=== PATIENT | female | born 1995 | race African-American/Black ===

== ENCOUNTER 2022-11-06 05:02 | Emergency (ER) | payer BC ==
--- OUTSIDE RECORDS SUMMARY | 2022-11-06 05:10 | XMS REPORT | Continuity of Care Document ---
:1995 Author Organization [facility] t Address [address] [facility]. [address] [place] [address] Care Team Providers Name Role Phone Jolynn Amezquita MD Primary Care Physician KAHLIL GOMEZ Attending Clinician Unavailable JOLYNN AMEZQUITA Attending Clinician Unavailable Jesus Jung MD Attending Clinician Milagros Kirby MA Attending Clinician Unavailable Doctor Unassigned, [place] Attending Clinician Unavailable Yeny Call MD Attending Clinician [facility] Attending Clinician Unavailable LEE IYER Attending Clinician Unavailable LEE IYER Attending Clinician Unavailable RICK MCDONOUGH Attending Clinician Unavailable Mohan Anna Attending Clinician Unknown, Attending Attending Clinician Unavailable MOHAN AMEZQUITA Attending Clinician Unavailable Bernice Lehman MA L Attending Clinician Unavailable Rick Mcdonough PA-C Attending Clinician Kahlil Gomez MD Attending Clinician Linsey Pinzon RN Attending Clinician Amanda Peterson Attending Clinician Satish oPwell MD Attending Clinician BRYAN ANGUIANO Attending Clinician Unavailable Only, [facility] Attending Clinician Unavailable UNKNOWN, ATTENDING Attending Clinician Unavailable JAROCHO ANDERSON Attending Clinician Unavailable JESUS JOHNSON Attending Clinician Unavailable Bello RN, Michela Weaver Attending Clinician Unavailable Halley Campos MA Attending Clinician Unavailable Only, Cori Vtc Test Attending Clinician Unavailable Gaurav HE, Tomas Gonzáles Attending Clinician TOMAS MCGHEE Attending Clinician Unavailable Celeste Rodriguez Attending Clinician CELESTE ORTEGA Attending Clinician Unavailable Ethan Jerry MD Attending Clinician Sy Wiseman MD Attending Clinician SY WISEMAN Attending Clinician Unavailable Dilcia Isaacs MD Attending Clinician Karla Herring Attending Clinician [phone] KARLA CARSON Attending Clinician Unavailable DILCIA ISAACS Attending Clinician Unavailable Pob, [facility] Attending Clinician Unavailable Jarocho Anderson DO Attending Clinician KAHLIL GOMEZ Admitting Clinician Unavailable Kahlil Gmoez MD Admitting Clinician Payers Payer Name Policy Type Policy Number Effective Date Expiration Date S branden [facility] [id number] 2021 EMPLOYEE PLAN 00:00:00 Problems Condition Condition Condition Status Onset Resolution Last Treating Co mments Source Name Details Category Date Date Treatment Clinician Date Vaginal Vaginal Disease Active Univers discharge discharge 2-26 ity of 00:00: [place] 00 Medical Branch Iron Iron Disease Recurre Univers deficiency deficiency nce 2-25 it y of anemia due [place] chronic to chronic 00 Me dical blood loss blood loss Br anch Chronic Chronic Disease Recurre Univer s migraine migraine nce 2-25 ity of without without 00:00: [place] aura with aura with 00 Medi vy status status Branch migrainosu migrainosu s, not s, not intractabl intractabl e e Constipati Constipati Disease Active U nivers on, on, 12-21 ity of unspecifie unspecifie [place] 00 Medical constipati constipati Br anch on type on type Hypokalemi Hypokalemi Disease Active U nivers a a 7-13 ity of 00:00: [place] 00 Medical Branch Anemia Anemia Disease Active Univers associated associated 7-13 it y of with acute with acute [place] blood loss blood loss 00 Me dical Branch Retained Retained Disease Active Unive rs products products 7-11 ity of of of 00:00: [place] conception conception 00 Me dical after after Branch miscarriag miscarriag e e Class 1 Class 1 Disease Active Univers obesity obesity 5-10 ity of due to due to 00:00: [place] excess excess 00 Medical calories calories Branch without without serious serious comorbidit comorbidit y with y with body mass body mass index index (BMI) of (BMI) of 33.0 to 33.0 to 33.9 in 33.9 in adult adult 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 [place] II[place] 00 Medica l Branch Pap smear Pap smear Disease Active Uni vers of cervix of cervix 9-15 ity of with with 00:00: [place] ASCUS, ASCUS, 00 Medical cannot cannot Branch exclude exclude HGSIL HGSIL BMI BMI Disease Active 2018-06 Univers 31.0-31.9, 31.0-31.9, 2-09 it y of adult adult 00:00: [place] 00 Medical Branch Umbilical Umbilical Disease Active Uni vers hernia hernia 9-20 ity of without without 00:00: [place] obstructio obstructio 00 Me dical n and n and Branch without without gangrene gangrene Allergies, Adverse Reactions, Alerts Allergy Allergy Status Severity Reaction(s) Onset Inactive Treating Comm ents Source Name Type Date Date Clinician NO KNOWN Drug Active Univers ALLERGIE Class ity of [place] [facility] [place] Social History Social Habit Start Date Stop Date Quantity Comments Source History SDMO University o f Alcohol Frequency [place] M edical [facility] History [facility] University o f Alcohol Std [place] [facility] Drinks Branch History SDMO University o f Alcohol Binge [place] [facility] Alcohol intake 2022-07-31 2022-07-31 Ex-drinker University 00:00:00 00:00:00 (finding) [facility] Exposure to 2022-07-19 2022-07-29 Not sure [facility] SARS-CoV-2 00:00:00 11:23:[address] [facility] (event) [place] Tobacco use and 2021-12-21 2021-12-21 Smokeless tobacco Un iversity of exposure 00:00:00 00:00:00 non-user [facility] Alcohol Comment 2019-05-20 2019-05-20 social drinker Unive rsity of 00:00:00 00:00:00 [facility] Sex [birth year] Universit y of 00:00:00 00:00:00 [facility] Smoking Status Start Date Stop Date Source Never smoked tobacco [facility] Medications Ordered Filled Start Stop Current Ordering Indication Dosage Frequency Signature Comments Components Source Medication Medication Date Date Medication? Clinician (SIG) Name Name tretinoin Yes [id number] Apply to Univers 0.025 % 02 affected ity of cream 00:00: area(s) at [place] 00 bedtime. Medical Branch SUMAtriptan Yes [id number] When you Univers 50 mg 5-31 have a ity of tablet 00:00: severe [place] 00 headache Medical you can Branch take 50 mg. If symptoms persist or return, may repeat dose after 2 hours. No more than 2 tablets in a day SUMAtriptan Yes [id number] When you Univers 50 mg 5-31 have a ity of tablet 00:00: severe [place] 00 headache Medical you can Branch take 50 mg. If symptoms persist or return, may repeat dose after 2 hours. No more than 2 tablets in a day SUMAtriptan Yes [id number] When you Univers 50 mg 5-31 have a ity of tablet 00:00: severe [place] 00 headache Medical you can Branch take 50 mg. If symptoms persist or return, may repeat dose after 2 hours. No more than 2 tablets in a day valACYclovi Yes [id number] 2g Take 2 U nivers r (VALTREX) 4-21 tablets by it y of 1 gram 00:00: mouth in [place] tablet 00 the Medical morning Branch and 2 tablets in the evening. Take 2 doses total at the first sign of outbreak. valACYclovi Yes [id number] 2g Take 2 U nivers r (VALTREX) 4-21 tablets by it y of 1 gram 00:00: mouth in [place] tablet 00 the Medical morning Branch and 2 tablets in the evening. Take 2 doses total at the first sign of outbreak. valACYclovi Yes [id number] 2g Take 2 U nivers r (VALTREX) 4-21 tablets by it y of 1 gram 00:00: mouth in [place] tablet 00 the Medical morning Branch and 2 tablets in the evening. Take 2 doses total at the first sign of outbreak. valACYclovi Yes [id number] 2g Take 2 U nivers r (VALTREX) 4-21 tablets by it y of 1 gram 00:00: mouth in [place] tablet 00 the Medical morning Branch and 2 tablets in the evening. Take 2 doses total at the first sign of outbreak. ferrous Yes [id number] 324mg Take 1 Un dorinda gluconate 2-24 tablet by ity o f 324 mg 00:00: mouth [place] (37.5 mg 00 every Medical iron) Monday, Branch tablet Monday and Monday. ferrous Yes [id number] 324mg Take 1 Un dorinda gluconate 2-24 tablet by ity o f 324 mg 00:00: mouth [place] (37.5 mg 00 every Medical iron) Monday, Branch tablet Monday and Monday. ferrous Yes [id number] 324mg Take 1 Un dorinda gluconate 2-24 tablet by ity o f 324 mg 00:00: mouth [place] (37.5 mg 00 every Medical iron) Monday, Branch tablet Monday and Monday. ferrous Yes [id number] 324mg Take 1 Un dorinda gluconate 2-24 tablet by ity o f 324 mg 00:00: mouth [place] (37.5 mg 00 every Medical iron) Monday, Branch tablet Monday and Monday. ferrous 0 Yes [id number] 324mg Take 1 Un dorinda gluconate 2-24 tablet by ity o f 324 mg 00:00: mouth [place] (37.5 mg 00 every Medical iron) Monday, Branch tablet Monday and Monday. ferrous Yes [id number] 324mg Take 1 Un dorinda gluconate 2-24 tablet by ity o f 324 mg 00:00: mouth [place] (37.5 mg 00 every Medical iron) Monday, Branch tablet Monday and Monday. ferrous Yes [id number] 324mg Take 1 Un dorinda gluconate 2-24 tablet by ity o f 324 mg 00:00: mouth [place] (37.5 mg 00 every Medical iron) Monday, Branch tablet Monday and Monday. SUMAtriptan 2021-06 Yes [id number] When you Univers 50 mg 0-24 have a ity of tablet 00:00: severe [place] 00 headache Medical you can Branch take 50 mg. If symptoms persist or return, may repeat dose after 2 hours. No more than 2 tablets in a day naproxen 2021-06 Yes [id number] 500mg Take 1 U nivers 500 mg 0-24 tablet by ity of tablet 00:00: mouth 2 [place] 00 (two) Medical times Branch daily with meals as needed for Pain (scale 4-6). acetaminoph 2021-06 Yes [id number] 500mg Take 1 Univers en (TYLENOL 0-24 tablet by ity of EXTRA 00:00: mouth [place] STRENGTH) 00 every 6 Medical 500 mg (six) Branch tablet hours as needed for Pain. aspirin-inocente 2021-06 Yes [id number] 1{tbl} Take 1 Univers taminophen- 0-24 tablet by ity of caffeine 00:00: mouth [place] every 12 Medic al mg per (twelve) Branch tablet hours as needed for Pain. butalbital- 2021-06 Yes [id number] 1{tbl} Take 1 Univers acetaminoph 0-24 tablet by ity of en-caff 00:00: mouth [place] (ESGIC) 00 every 12 Medical 50-325-40 (twelve) Branch mg tablet hours as needed for Pain (scale 7-10). metoclopram 2021-06 Yes [id number] 5mg Take 0.5 Univers dian HCl 0-24 tablets by ity of (REGLAN) 10 00:00: mouth [place] mg tablet 00 every 12 Medica l (twelve) Branch hours as needed for Nausea and Vomiting (N/V). SUMAtriptan 2021-06 Yes [id number] When you Univers 50 mg 0-24 have a ity of tablet 00:00: severe [place] 00 headache Medical you can Branch take 50 mg. If symptoms persist or return, may repeat dose after 2 hours. No more than 2 tablets in a day naproxen 2021-06 Yes [id number] 500mg Take 1 U nivers 500 mg 0-24 tablet by ity of tablet 00:00: mouth 2 [place] 00 (two) Medical times Branch daily with meals as needed for Pain (scale 4-6). acetaminoph 2021-06 Yes 500mg Take 1 Univers en (TYLENOL 0-24 tablet by ity of EXTRA 00:00: mouth [place] STRENGTH) 00 every 6 Medical 500 mg (six) Branch tablet hours as needed for Pain. aspirin-inocente 2021-06 Yes [id number] 1{tbl} Take 1 Univers taminophen- 0-24 tablet by ity of caffeine 00:00: mouth [place] every 12 Medic al mg per (twelve) Branch tablet hours as needed for Pain. butalbital- 2021-06 Yes [id number] 1{tbl} Take 1 Univers acetaminoph 0-24 tablet by ity of en-caff 00:00: mouth [place] (ESGIC) 00 every 12 Medical 50-325-40 (twelve) Branch mg tablet hours as needed for Pain (scale 7-10). metoclopram 2021-06 Yes [id number] 5mg Take 0.5 Univers dian HCl 0-24 tablets by ity of (REGLAN) 10 00:00: mouth [place] mg tablet 00 every 12 Medica l (twelve) Branch hours as needed for Nausea and Vomiting (N/V). SUMAtriptan 2021-06 Yes [id number] When you Univers 50 mg 0-24 have a ity of tablet 00:00: severe [place] 00 headache Medical you can Branch take 50 mg. If symptoms persist or return, may repeat dose after 2 hours. No more than 2 tablets in a day naproxen 2021-06 Yes [id number] 500mg Take 1 U nivers 500 mg 0-24 tablet by ity of tablet 00:00: mouth 2 [place] 00 (two) Medical times Branch daily with meals as needed for Pain (scale 4-6). acetaminoph 2021-06 Yes [id number] 500mg Take 1 Univers en (TYLENOL 0-24 tablet by ity of EXTRA 00:00: mouth [place] STRENGTH) 00 every 6 Medical 500 mg (six) Branch tablet hours as needed for Pain. aspirin-inocente 2021-06 Yes [id number] 1{tbl} Take 1 Univers taminophen- 0-24 tablet by ity of caffeine 00:00: mouth [place] every 12 Medic al mg per (twelve) Branch tablet hours as needed for Pain. butalbital- 2021-06 Yes [id number] 1{tbl} Take 1 Univers acetaminoph 0-24 tablet by ity of en-caff 00:00: mouth [place] (ESGIC) 00 every 12 Medical 50-325-40 (twelve) Branch mg tablet hours as needed for Pain (scale 7-10). metoclopram 2021-06 Yes [id number] 5mg Take 0.5 Univers dian HCl 0-24 tablets by ity of (REGLAN) 10 00:00: mouth [place] mg tablet 00 every 12 Medica l (twelve) Branch hours as needed for Nausea and Vomiting (N/V). SUMAtriptan 2021-06 Yes [id number] When you Univers 50 mg 0-24 have a ity of tablet 00:00: severe [place] 00 headache Medical you can Branch take 50 mg. If symptoms persist or return, may repeat dose after 2 hours. No more than 2 tablets in a day naproxen 2021-06 Yes [id number] 500mg Take 1 U nivers 500 mg 0-24 tablet by ity of tablet 00:00: mouth 2 [place] 00 (two) Medical times Branch daily with meals as needed for Pain (scale 4-6). acetaminoph 2021-06 Yes [id number] 500mg Take 1 Univers en (TYLENOL 0-24 tablet by ity of EXTRA 00:00: mouth [place] STRENGTH) 00 every 6 Medical 500 mg (six) Branch tablet hours as needed for Pain. aspirin-inocente 2021-06 Yes [id number] 1{tbl} Take 1 Univers taminophen- 0-24 tablet by ity of caffeine 00:00: mouth [place] every 12 Medic al mg per (twelve) Branch tablet hours as needed for Pain. butalbital- 2021-06 Yes [id number] 1{tbl} Take 1 Univers acetaminoph 0-24 tablet by ity of en-caff 00:00: mouth [place] (ESGIC) 00 every 12 Medical 50-325-40 (twelve) Branch mg tablet hours as needed for Pain (scale 7-10). metoclopram 2021-06 Yes [id number] 5mg Take 0.5 Univers dian HCl 0-24 tablets by ity of (REGLAN) 10 00:00: mouth [place] mg tablet 00 every 12 Medica l (twelve) Branch hours as needed for Nausea and Vomiting (N/V). SUMAtriptan 2021-06 Yes [id number] When you Univers 50 mg 0-24 have a ity of tablet 00:00: severe [place] 00 headache Medical you can Branch take 50 mg. If symptoms persist or return, may repeat dose after 2 hours. No more than 2 tablets in a day naproxen 2021-06 Yes [id number] 500mg Take 1 U nivers 500 mg 0-24 tablet by ity of tablet 00:00: mouth 2 [place] 00 (two) Medical times Branch daily with meals as needed for Pain (scale 4-6). acetaminoph 2021-06 Yes [id number] 500mg Take 1 Univers en (TYLENOL 0-24 tablet by ity of EXTRA 00:00: mouth [place] STRENGTH) 00 every 6 Medical 500 mg (six) Branch tablet hours as needed for Pain. aspirin-inocente 2021-06 Yes [id number] 1{tbl} Take 1 Univers taminophen- 0-24 tablet by ity of caffeine 00:00: mouth [place] every 12 Medic al mg per (twelve) Branch tablet hours as needed for Pain. butalbital- 2021-06 Yes [id number] 1{tbl} Take 1 Univers acetaminoph 0-24 tablet by ity of en-caff 00:00: mouth [place] (ESGIC) 00 every 12 Medical 50-325-40 (twelve) Branch mg tablet hours as needed for Pain (scale 7-10). metoclopram 2021-06 Yes [id number] 5mg Take 0.5 Univers dian HCl 0-24 tablets by ity of (REGLAN) 10 00:00: mouth [place] mg tablet 00 every 12 Medica l (twelve) Branch hours as needed for Nausea and Vomiting (N/V). SUMAtriptan 2021-06 Yes [id number] When you Univers 50 mg 0-24 have a ity of tablet 00:00: severe [place] 00 headache Medical you can Branch take 50 mg. If symptoms persist or return, may repeat dose after 2 hours. No more than 2 tablets in a day naproxen 2021-06 Yes [id number] 500mg Take 1 U nivers 500 mg 0-24 tablet by ity of tablet 00:00: mouth 2 [place] 00 (two) Medical times Branch daily with meals as needed for Pain (scale 4-6). acetaminoph 2021-06 Yes [id number] 500mg Take 1 Univers en (TYLENOL 0-24 tablet by ity of EXTRA 00:00: mouth [place] STRENGTH) 00 every 6 Medical 500 mg (six) Branch tablet hours as needed for Pain. aspirin-inocente 2021-06 Yes [id number] 1{tbl} Take 1 Univers taminophen- 0-24 tablet by ity of caffeine 00:00: mouth [place] every 12 Medic al mg per (twelve) Branch tablet hours as needed for Pain. butalbital- 2021-06 Yes [id number] 1{tbl} Take 1 Univers acetaminoph 0-24 tablet by ity of en-caff 00:00: mouth [place] (ESGIC) 00 every 12 Medical 50-325-40 (twelve) Branch mg tablet hours as needed for Pain (scale 7-10). metoclopram 2021-06 Yes [id number] 5mg Take 0.5 Univers dian HCl 0-24 tablets by ity of (REGLAN) 10 00:00: mouth [place] mg tablet 00 every 12 Medica l (twelve) Branch hours as needed for Nausea and Vomiting (N/V). SUMAtriptan 2021-06 Yes [id number] When you Univers 50 mg 0-24 have a ity of tablet 00:00: severe [place] 00 headache Medical you can Branch take 50 mg. If symptoms persist or return, may repeat dose after 2 hours. No more than 2 tablets in a day naproxen 2021-06 Yes [id number] 500mg Take 1 U nivers 500 mg 0-24 tablet by ity of tablet 00:00: mouth 2 [place] 00 (two) Medical times Branch daily with meals as needed for Pain (scale 4-6). acetaminoph 2021-06 Yes [id number] 500mg Take 1 Univers en (TYLENOL 0-24 tablet by ity of EXTRA 00:00: mouth [place] STRENGTH) 00 every 6 Medical 500 mg (six) Branch tablet hours as needed for Pain. aspirin-inocente 2021-06 Yes [id number] 1{tbl} Take 1 Univers taminophen- 0-24 tablet by ity of caffeine 00:00: mouth [place] every 12 Medic al mg per (twelve) Branch tablet hours as needed for Pain. butalbital- 2021-06 Yes [id number] 1{tbl} Take 1 Univers acetaminoph 0-24 tablet by ity of en-caff 00:00: mouth [place] (ESGIC) 00 every 12 Medical 50-325-40 (twelve) Branch mg tablet hours as needed for Pain (scale 7-10). metoclopram 2021-06 Yes [id number] 5mg Take 0.5 Univers dian HCl 0-24 tablets by ity of (REGLAN) 10 00:00: mouth [place] mg tablet 00 every 12 Medica l (twelve) Branch hours as needed for Nausea and Vomiting (N/V). SUMAtriptan 2021-06 Yes [id number] When you Univers 50 mg 0-24 have a ity of tablet 00:00: severe [place] 00 headache Medical you can Branch take 50 mg. If symptoms persist or return, may repeat dose after 2 hours. No more than 2 tablets in a day naproxen 2021-06 Yes [id number] 500mg Take 1 U nivers 500 mg 0-24 tablet by ity of tablet 00:00: mouth 2 [place] 00 (two) Medical times Branch daily with meals as needed for Pain (scale 4-6). acetaminoph 2021-06 Yes [id number] 500mg Take 1 Univers en (TYLENOL 0-24 tablet by ity of EXTRA 00:00: mouth [place] STRENGTH) 00 every 6 Medical 500 mg (six) Branch tablet hours as needed for Pain. aspirin-inocente 2021-06 Yes [id number] 1{tbl} Take 1 Univers taminophen- 0-24 tablet by ity of caffeine 00:00: mouth [place] every 12 Medic al mg per (twelve) Branch tablet hours as needed for Pain. butalbital- 2021-06 Yes [id number] 1{tbl} Take 1 Univers acetaminoph 0-24 tablet by ity of en-caff 00:00: mouth [place] (ESGIC) 00 every 12 Medical 50-325-40 (twelve) Branch mg tablet hours as needed for Pain (scale 7-10). metoclopram 2021-06 Yes [id number] 5mg Take 0.5 Univers dian HCl 0-24 tablets by ity of (REGLAN) 10 00:00: mouth [place] mg tablet 00 every 12 Medica l (twelve) Branch hours as needed for Nausea and Vomiting (N/V). SUMAtriptan 2021-06 Yes [id number] When you Univers 50 mg 0-24 have a ity of tablet 00:00: severe [place] 00 headache Medical you can Branch take 50 mg. If symptoms persist or return, may repeat dose after 2 hours. No more than 2 tablets in a day naproxen 2021-06 Yes [id number] 500mg Take 1 U nivers 500 mg 0-24 tablet by ity of tablet 00:00: mouth 2 [place] 00 (two) Medical times Branch daily with meals as needed for Pain (scale 4-6). acetaminoph 2021-06 Yes [id number] 500mg Take 1 Univers en (TYLENOL 0-24 tablet by ity of EXTRA 00:00: mouth [place] STRENGTH) 00 every 6 Medical 500 mg (six) Branch tablet hours as needed for Pain. aspirin-inocente 2021-06 Yes [id number] 1{tbl} Take 1 Univers taminophen- 0-24 tablet by ity of caffeine 00:00: mouth [place] every 12 Medic al mg per (twelve) Branch tablet hours as needed for Pain. butalbital- 2021-06 Yes [id number] 1{tbl} Take 1 Univers acetaminoph 0-24 tablet by ity of en-caff 00:00: mouth [place] (ESGIC) 00 every 12 Medical 50-325-40 (twelve) Branch mg tablet hours as needed for Pain (scale 7-10). metoclopram 2021-06 Yes [id number] 5mg Take 0.5 Univers dian HCl 0-24 tablets by ity of (REGLAN) 10 00:00: mouth [place] mg tablet 00 every 12 Medica l (twelve) Branch hours as needed for Nausea and Vomiting (N/V). SUMAtriptan 2021-06 Yes [id number] When you Univers 50 mg 0-24 have a ity of tablet 00:00: severe [place] 00 headache Medical you can Branch take 50 mg. If symptoms persist or return, may repeat dose after 2 hours. No more than 2 tablets in a day naproxen 2021-06 Yes [id number] 500mg Take 1 U nivers 500 mg 0-24 tablet by ity of tablet 00:00: mouth 2 [place] 00 (two) Medical times Branch daily with meals as needed for Pain (scale 4-6). acetaminoph 2021-06 Yes [id number] 500mg Take 1 Univers en (TYLENOL 0-24 tablet by ity of EXTRA 00:00: mouth [place] STRENGTH) 00 every 6 Medical 500 mg (six) Branch tablet hours as needed for Pain. aspirin-inocente 2021-06 Yes [id number] 1{tbl} Take 1 Univers taminophen- 0-24 tablet by ity of caffeine 00:00: mouth [place] every 12 Medic al mg per (twelve) Branch tablet hours as needed for Pain. butalbital- 2021-06 Yes [id number] 1{tbl} Take 1 Univers acetaminoph 0-24 tablet by ity of en-caff 00:00: mouth [place] (ESGIC) 00 every 12 Medical 50-325-40 (twelve) Branch mg tablet hours as needed for Pain (scale 7-10). metoclopram 2021-06 Yes [id number] 5mg Take 0.5 Univers dian HCl 0-24 tablets by ity of (REGLAN) 10 00:00: mouth [place] mg tablet 00 every 12 Medica l (twelve) Branch hours as needed for Nausea and Vomiting (N/V). SUMAtriptan 2021-06 Yes [id number] When you Univers 50 mg 0-24 have a ity of tablet 00:00: severe 00 headache Medical you can Branch take 50 mg. If symptoms persist or return, may repeat dose after 2 hours. No more than 2 tablets in a day naproxen 2021-06 Yes [id number] 500mg Take 1 U nivers 500 mg 0-24 tablet by ity of tablet 00:00: mouth 2 [place] 00 (two) Medical times Branch daily with meals as needed for Pain (scale 4-6). acetaminoph 2021-06 Yes [id number] 500mg Take 1 Univers en (TYLENOL 0-24 tablet by ity of EXTRA 00:00: mouth [place] STRENGTH) 00 every 6 Medical 500 mg (six) Branch tablet hours as needed for Pain. aspirin-inocente 2021-06 Yes [id number] 1{tbl} Take 1 Univers taminophen- 0-24 tablet by ity of caffeine 00:00: mouth [place] every 12 Medic al mg per (twelve) Branch tablet hours as needed for Pain. butalbital- 2021-06 Yes [id number] 1{tbl} Take 1 Univers acetaminoph 0-24 tablet by ity of en-caff 00:00: mouth [place] (ESGIC) 00 every 12 Medical 50-325-40 (twelve) Branch mg tablet hours as needed for Pain (scale 7-10). metoclopram 2021-06 Yes [id number] 5mg Take 0.5 Univers dian HCl 0-24 tablets by ity of (REGLAN) 10 00:00: mouth [place] mg tablet 00 every 12 Medica l (twelve) Branch hours as needed for Nausea and Vomiting (N/V). SUMAtriptan 2021-06 Yes [id number] When you Univers 50 mg 0-24 have a ity of tablet 00:00: severe [place] 00 headache Medical you can Branch take 50 mg. If symptoms persist or return, may repeat dose after 2 hours. No more than 2 tablets in a day naproxen 2021-06 Yes [id number] 500mg Take 1 U nivers 500 mg 0-24 tablet by ity of tablet 00:00: mouth 2 [place] 00 (two) Medical times Branch daily with meals as needed for Pain (scale 4-6). acetaminoph 2021-06 Yes [id number] 500mg Take 1 Univers en (TYLENOL 0-24 tablet by ity of EXTRA 00:00: mouth [place] STRENGTH) 00 every 6 Medical 500 mg (six) Branch tablet hours as needed for Pain. aspirin-inocente 2021-06 Yes [id number] 1{tbl} Take 1 Univers taminophen- 0-24 tablet by ity of caffeine 00:00: mouth [place] every 12 Medic al mg per (twelve) Branch tablet hours as needed for Pain. butalbital- 2021-06 Yes [id number] 1{tbl} Take 1 Univers acetaminoph 0-24 tablet by ity of en-caff 00:00: mouth [place] (ESGIC) 00 every 12 Medical 50-325-40 (twelve) Branch mg tablet hours as needed for Pain (scale 7-10). metoclopram 2021-06 Yes [id number] 5mg Take 0.5 Univers dian HCl 0-24 tablets by ity of (REGLAN) 10 00:00: mouth [place] mg tablet 00 every 12 Medica l (twelve) Branch hours as needed for Nausea and Vomiting (N/V). SUMAtriptan 2021-06 Yes [id number] When you [facility] 50 mg 0-24 have a ity of tablet 00:00: severe [place] 00 headache Medical you can Branch take 50 mg. If symptoms persist or return, may repeat dose after 2 hours. No more than 2 tablets in a day naproxen 2021-06 Yes [id number] 500mg Take 1 U nivers 500 mg 0-24 tablet by ity of tablet 00:00: mouth 2 [place] 00 (two) Medical times Branch daily with meals as needed for Pain (scale 4-6). acetaminoph 2021-06 Yes [id number] 500mg Take 1 [facility] en (TYLENOL 0-24 tablet by ity of EXTRA 00:00: mouth [place] STRENGTH) 00 every 6 Medical 500 mg (six) Branch tablet hours as needed for Pain. aspirin-inocente 2021-06 Yes [id number] 1{tbl} Take 1 [facility] taminophen- 0-24 tablet by ity of caffeine 00:00: mouth [place] every 12 Medic al mg per (twelve) Branch tablet hours as needed for Pain. butalbital- 2021-06 Yes [id number] 1{tbl} Take 1 [facility] acetaminoph 0-24 tablet by ity of en-caff 00:00: mouth [place] (ESGIC) 00 every 12 Medical 50-325-40 (twelve) Branch mg tablet hours as needed for Pain (scale 7-10). metoclopram 2021-06 Yes [id number] 5mg Take 0.5 [facility] dian HCl 0-24 tablets by ity of (REGLAN) 10 00:00: mouth [place] mg tablet 00 every 12 Medica l (twelve) Branch hours as needed for Nausea and Vomiting (N/V). naproxen 2021-06 Yes [id number] 500mg Take 1 U nivers 500 mg 0-24 tablet by ity of tablet 00:00: mouth 2 [place] 00 (two) Medical times Branch daily with meals as needed for Pain (scale 4-6). acetaminoph 2021-06 Yes [id number] 500mg Take 1 [facility] en (TYLENOL 0-24 tablet by ity of EXTRA 00:00: mouth [place] STRENGTH) 00 every 6 Medical 500 mg (six) Branch tablet hours as needed for Pain. aspirin-inocente 2021-06 Yes [id number] 1{tbl} Take 1 [facility] taminophen- 0-24 tablet by ity of caffeine 00:00: mouth [place] every 12 Medic al mg per (twelve) Branch tablet hours as needed for Pain. butalbital- 2021-06 Yes [id number] 1{tbl} Take 1 [facility] acetaminoph 0-24 tablet by ity of en-caff 00:00: mouth [place] (ESGIC) 00 every 12 Medical 50-325-40 (twelve) Branch mg tablet hours as needed for Pain (scale 7-10). metoclopram 2021-06 Yes [id number] 5mg Take 0.5 [facility] dian HCl 0-24 tablets by ity of (REGLAN) 10 00:00: mouth [place] mg tablet 00 every 12 Medica l (twelve) Branch hours as needed for Nausea and Vomiting (N/V). naproxen 2021-06 Yes [id number] 500mg Take 1 U nivers 500 mg 0-24 tablet by ity of tablet 00:00: mouth 2 [place] 00 (two) Medical times Branch daily with meals as needed for Pain (scale 4-6). acetaminoph 2021-06 Yes [id number] 500mg Take 1 [facility] en (TYLENOL 0-24 tablet by ity of EXTRA 00:00: mouth [place] STRENGTH) 00 every 6 Medical 500 mg (six) Branch tablet hours as needed for Pain. aspirin-inocente 2021-06 Yes [id number] 1{tbl} Take 1 [facility] taminophen- 0-24 tablet by ity of caffeine 00:00: mouth [place] every 12 Medic al mg per (twelve) Branch tablet hours as needed for Pain. butalbital- 2021-06 Yes [id number] 1{tbl} Take 1 [facility] acetaminoph 0-24 tablet by ity of en-caff 00:00: mouth [place] (ESGIC) 00 every 12 Medical 50-325-40 (twelve) Branch mg tablet hours as needed for Pain (scale 7-10). metoclopram 2021-06 Yes [id number] 5mg Take 0.5 [facility] dian HCl 0-24 tablets by ity of (REGLAN) 10 00:00: mouth [place] mg tablet 00 every 12 Medica l (twelve) Branch hours as needed for Nausea and Vomiting (N/V). naproxen 2021-06 Yes [id number] 500mg Take 1 U nivers 500 mg 0-24 tablet by ity of tablet 00:00: mouth 2 [place] 00 (two) Medical times Branch daily with meals as needed for Pain (scale 4-6). acetaminoph 2021-06 Yes [id number] 500mg Take 1 [facility] en (TYLENOL 0-24 tablet by ity of EXTRA 00:00: mouth [place] STRENGTH) 00 every 6 Medical 500 mg (six) Branch tablet hours as needed for Pain. aspirin-inocente 2021-06 Yes [id number] 1{tbl} Take 1 [facility] taminophen- 0-24 tablet by ity of caffeine 00:00: mouth [place] every 12 Medic al mg per (twelve) Branch tablet hours as needed for Pain. butalbital- 2021-06 Yes [id number] 1{tbl} Take 1 [facility] acetaminoph 0-24 tablet by ity of en-caff 00:00: mouth [place] (ESGIC) 00 every 12 Medical 50-325-40 (twelve) Branch mg tablet hours as needed for Pain (scale 7-10). metoclopram 2021-06 Yes [id number] 5mg Take 0.5 [facility] dian HCl 0-24 tablets by ity of (REGLAN) 10 00:00: mouth [place] mg tablet 00 every 12 Medica l (twelve) Branch hours as needed for Nausea and Vomiting (N/V). SUMAtriptan 2021-06- No [id number] When you [facility] 50 mg 0-24 05-31 have a ity of tablet 00:00: 00:00 severe [place] 00 :00 headache Medical you can Branch take 50 mg. If symptoms persist or return, may repeat dose after 2 hours. No more than 2 tablets in a day No known No No known Unive rs medications 7-28 medication it y of 08:11: s [place] 02 Medical Branch semaglutide Yes [id number] 2.4mg inject 2.4 [facility] , weight 7-28 mg under ity of loss, 2.4 00:00: the [place] mg/0.75 mL 00 weekly. Medica l [facility] Branch injection semaglutide 2021-0 Yes [id number] 2.4mg inject 2.4 [facility] , weight 7-28 mg under ity of loss, 2.4 00:00: the [place] mg/0.75 mL 00 weekly. Medica l P[facility] Branch injection semaglutide 2021-0 Yes [id number] 2.4mg inject 2.4 [facility] , weight 7-28 mg under ity of loss, 2.4 00:00: the [place] mg/0.75 mL 00 weekly. [facility]ica l [facility] Branch injection semaglutide 2021-0 Yes [id number] 2.4mg inject 2.4 [facility] , weight 7-28 mg under ity of loss, 2.4 00:00: the [place] mg/0.75 mL 00 weekly. [facility]ica l [facility] Branch injection semaglutide 2021-0 Yes [id number] 2.4mg inject 2.4 [facility] , weight 7-28 mg under ity of loss, 2.4 00:00: the [place] mg/0.75 mL 00 weekly. Medica l [facility] Branch injection semaglutide 2021-0 Yes [id number] 2.4mg inject 2.4 [facility] , weight 7-28 mg under ity of loss, 2.4 00:00: the [place] mg/0.75 mL 00 weekly. Medica l [facility] Branch injection semaglutide 2021-0 Yes [id number] 2.4mg inject 2.4 [facility] , weight 7-28 mg under ity of loss, 2.4 00:00: the [place] mg/0.75 mL 00 weekly. Medica l [facility] Branch injection semaglutide 2-0 Yes [id number] 2.4mg inject 2.4 [facility] , weight 7-28 mg under ity of loss, 2.4 00:00: the [place] mg/0.75 mL 00 weekly. Medica l [facility] Branch injection semaglutide 2021-0 Yes [id number] 2.4mg inject 2.4 [facility] , weight 7-28 mg under ity of loss, 2.4 00:00: the [place] mg/0.75 mL 00 weekly. Medica l [facility] Branch injection semaglutide 2021-0 Yes [id number] 2.4mg inject 2.4 [facility] , weight 7-28 mg under ity of loss, 2.4 00:00: the [place] mg/0.75 mL 00 weekly. Medica l [facility] Branch injection semaglutide 2021-0 Yes [id number] 2.4mg inject 2.4 [facility] , weight 7-28 mg under ity of loss, 2.4 00:00: the [place] mg/0.75 mL 00 weekly. Medica l [facility] Branch injection semaglutide 2021-0 Yes [id number] 2.4mg inject 2.4 [facility] , weight 7-28 mg under ity of loss, 2.4 00:00: the [place] mg/0.75 mL 00 weekly. Medica l [facility] Branch injection semaglutide 2021-0 Yes [id number] 2.4mg inject 2.4 [facility] , weight 7-28 mg under ity of loss, 2.4 00:00: the [place] mg/0.75 mL 00 weekly. Medica l [facility] Branch injection semaglutide 2021-0 Yes [id number] 2.4mg inject 2.4 [facility] , weight 7-28 mg under ity of loss, 2.4 00:00: the [place] mg/0.75 mL 00 weekly. Medica l [facility] Branch injection semaglutide 2-0 Yes [id number] 2.4mg inject 2.4 [facility] , weight 7-28 mg under ity of loss, 2.4 00:00: the [place] mg/0.75 mL 00 weekly. Medica l [facility] Branch injection semaglutide 2-0 Yes [id number] 2.4mg inject 2.4 [facility] , weight 7-28 mg under ity of loss, 2.4 00:00: the skin [place] mg/0.75 mL 00 weekly. Medica l [facility] Branch injection semaglutide 2-0 Yes [id number] 2.4mg inject 2.4 [facility] , weight 7-28 mg under ity of loss, 2.4 00:00: the [place] mg/0.75 mL 00 weekly. Medica l P[facility] Branch injection semaglutide 2-0 Yes [id number] 2.4mg inject 2.4 [facility] , weight 7-28 mg under ity of loss, 2.4 00:00: the [place] mg/0.75 mL 00 weekly. Medica l [facility] Branch injection semaglutide 2-0 Yes [id number] 2.4mg inject 2.4 [facility] , weight 7-28 mg under ity of loss, 2.4 00:00: the [place] mg/0.75 mL 00 weekly. [facility]ica l [facility] Branch injection semaglutide 2-0 Yes [id number] 2.4mg inject 2.4 [facility] , weight 7-28 mg under ity of loss, 2.4 00:00: the [place] mg/0.75 mL 00 weekly. Medica l [facility] Branch injection semaglutide 2-0 Yes [id number] 2.4mg inject 2.4 [facility] , weight 7-28 mg under ity of loss, 2.4 00:00: the [place] mg/0.75 mL 00 weekly. Medica l [facility] Branch injection semaglutide 2-0 Yes [id number] 2.4mg inject 2.4 [facility] , weight 7-28 mg under ity of loss, 2.4 00:00: the [place] mg/0.75 mL 00 weekly. Medica l [facility] Branch injection semaglutide 2-0 Yes [id number] 2.4mg inject 2.4 [facility] , weight 7-28 mg under ity of loss, 2.4 00:00: the [place] mg/0.75 mL 00 weekly. Medica l [facility] Branch injection semaglutide 2-0 Yes [id number] 2.4mg inject 2.4 [facility] , weight 7-28 mg under ity of loss, 2.4 00:00: the skin [place] mg/0.75 mL 00 weekly. Medica l Pn[facility] Branch injection polyethylen 2-0 Yes [id number] 1{packe Take 1 [facility] e glycol 7-19 t} Packet by ity of 3350 00:00: mouth in [place] (MIRALAX) 00 the Medical 17 gram morning. Branch powder sodium Yes [id number] 1{enema Insert 1 [facility] phosphates 7-19 } Enema into ity of 19-7 00:00: rectum as [place] gram/118 mL 00 needed for Me dical enema Constipati Branch on unresolved by oral medication s. Follow package directions polyethylen Yes [id number] 1{packe Take 1 [facility] e glycol 7-19 t} Packet by ity of 3350 00:00: mouth in [place] (MIRALAX) 00 the Medical 17 gram morning. Branch powder sodium Yes [id number] 1{enema Insert 1 [facility] phosphates 7-19 } Enema into ity of -7 00:00: rectum as [place] gram/118 mL 00 needed for Me dical enema Constipati Branch on unresolved by oral medication s. Follow package directions polyethylen Yes [id number] 1{packe Take 1 [facility] e glycol 7-19 t} Packet by ity of 3350 00:00: mouth in [place] (MIRALAX) 00 the Medical 17 gram morning. Branch powder sodium Yes [id number] 1{enema Insert 1 [facility] phosphates 7-19 } Enema into ity of -7 00:00: rectum as [place] gram/118 mL 00 needed for Me dical enema Constipati Branch on unresolved by oral medication s. Follow package directions polyethylen Yes [id number] 1{packe Take 1 [facility] e glycol 7-19 t} Packet by ity of 3350 00:00: mouth in [place] (MIRALAX) 00 the Medical 17 gram morning. Branch powder sodium Yes [id number] 1{enema Insert 1 [facility] phosphates 7-19 } Enema into ity of -7 00:00: rectum as [place] gram/118 mL 00 needed for Me dical enema Constipati Branch on unresolved by oral medication s. Follow package directions polyethylen Yes [id number] 1{packe Take 1 [facility] e glycol 7-19 t} Packet by ity of 3350 00:00: mouth in [place] (MIRALAX) 00 the Medical 17 gram morning. Branch powder sodium Yes [id number] 1{enema Insert 1 [facility] phosphates 7-19 } Enema into ity of 19-7 00:00: rectum as [place] gram/118 mL 00 needed for Me dical enema Constipati Branch on unresolved by oral medication s. Follow package directions polyethylen 2021-0 Yes [id number] 1{packe Take 1 [facility] e glycol 7-19 t} Packet by ity of 3350 00:00: mouth in [place] (MIRALAX) 00 the Medical 17 gram morning. Branch powder sodium 2021-0 Yes [id number] 1{enema Insert 1 [facility] phosphates 7-19 } Enema into ity of 19-7 00:00: rectum as [place] gram/118 mL 00 needed for Me dical enema Constipati Branch on unresolved by oral medication s. Follow package directions polyethylen 2021-0 Yes [id number] 1{packe Take 1 [facility] e glycol 7-19 t} Packet by ity of 3350 00:00: mouth in [place] (MIRALAX) 00 the Medical 17 gram morning. Branch powder sodium 2021-0 Yes [id number] 1{enema Insert 1 [facility] phosphates 7-19 } Enema into ity of -7 00:00: rectum as [place] gram/118 mL 00 needed for Me dical enema Constipati Branch on unresolved by oral medication s. Follow package directions polyethylen 2021-0 Yes [id number] 1{packe Take 1 [facility] e glycol 7-19 t} Packet by ity of 3350 00:00: mouth in [place] (MIRALAX) 00 the Medical 17 gram morning. Branch powder sodium 2021-0 Yes [id number] 1{enema Insert 1 [facility] phosphates 7-19 } Enema into ity of 00:00: rectum as [place] gram/118 mL 00 needed for Me dical enema Constipati Branch on unresolved by oral medication s. Follow package directions fluorometho 2021-0 Yes INSTILL Uni vers lone 0.1 % 7-16 ONE (1) ity of ophthalmic 00:00: DROP(S) IN [place] suspension 00 EACH EYE Medic al drops EVERY Branch THREE HOURS FOR 1 WEEK. fluorometho 2022-0 Yes INSTILL Uni vers lone 0.1 % 7-16 ONE (1) ity of ophthalmic 00:00: DROP(S) IN [place] suspension 00 EACH EYE Medic al drops EVERY Branch THREE HOURS FOR 1 WEEK. fluorometho 2022-0 Yes INSTILL Uni vers lone 0.1 % 7-16 ONE (1) ity of ophthalmic 00:00: DROP(S) IN [place] suspension 00 EACH EYE Medic al drops EVERY Branch THREE HOURS FOR 1 WEEK. fluorometho 2022-0 Yes INSTILL Uni vers lone 0.1 % 7-16 ONE (1) ity of ophthalmic 00:00: DROP(S) IN [place] suspension 00 EACH EYE Medic al drops EVERY Branch THREE HOURS FOR 1 WEEK. fluorometho 202-0 Yes INSTILL Uni vers lone 0.1 % 7-16 ONE (1) ity of ophthalmic 00:00: DROP(S) IN [place] suspension 00 EACH EYE Medic al drops EVERY Branch THREE HOURS FOR 1 WEEK. fluorometho 202-0 Yes INSTILL Uni vers lone 0.1 % 7-16 ONE (1) ity of ophthalmic 00:00: DROP(S) IN [place] suspension 00 EACH EYE Medic al drops EVERY Branch THREE HOURS FOR 1 WEEK. fluorometho 2021-0 2021- No INSTILL Un dorinda lone 0.1 % 7-16 02-28 ONE (1) ity o f ophthalmic 00:00: 00:00 DROP(S) IN [place] suspension 00 :00 EACH EYE Medic al drops EVERY Branch THREE HOURS FOR 1 WEEK. fluorometho 2021-0 202- No INSTILL Un dorinda lone 0.1 % 7-16 02-28 ONE (1) ity o f ophthalmic 00:00: 00:00 DROP(S) IN [place] suspension 00 :00 EACH EYE Medic al drops EVERY Branch THREE HOURS FOR 1 WEEK. ferrous 2021-0 Yes [id number] 324mg Take 1 Un dorinda gluconate 7-14 tablet by ity o f 324 mg 00:00: mouth in [place] (37.5 mg 00 the Medical iron) morning Branch tablet and 1 tablet in the evening. methylergon 2021-0 Yes [id number] 200ug Take 1 [facility] ovine 0.2 7-14 tablet by ity o f mg tablet 00:00: mouth [place] 00 every 6 Medical (six) Branch hours. ascorbic 2021-0 Yes [id number] 500mg Take 1 U nivers acid, 7-14 tablet by ity of vitamin C, 00:00: mouth in [facility] as (VITAMIN C) 00 the Medical 500 mg morning. Branch docusate 2021-0 Yes [id number] 100mg Take 1 U nivers 100 mg 7-14 capsule by ity of capsule 00:00: mouth in [place] 00 the Medical morning. Branch ferrous 2021-0 Yes [id number] 324mg Take 1 Un dorinda gluconate 7-14 tablet by ity o f 324 mg 00:00: mouth in [place] (37.5 mg 00 the Medical iron) morning Branch tablet and 1 tablet in the evening. methylergon 2021-0 Yes [id number] 200ug Take 1 [facility] ovine 0.2 7-14 tablet by ity o f mg tablet 00:00: mouth [place] 00 every 6 Medical (six) Branch hours. ascorbic 2021-0 Yes [id number] 500mg Take 1 U nivers acid, 7-14 tablet by ity of vitamin C, 00:00: mouth in [facility] as (VITAMIN C) 00 the Medical 500 mg morning. Branch docusate 0 Yes [id number] 100mg Take 1 U nivers 100 mg 7-14 capsule by ity of capsule 00:00: mouth in [place] 00 the Medical morning. Branch ferrous 2021-0 Yes [id number] 324mg Take 1 Un dorinda gluconate 7-14 tablet by ity o f 324 mg 00:00: mouth in [place] (37.5 mg 00 the Medical iron) morning Branch tablet and 1 tablet in the evening. methylergon 2021-0 Yes [id number] 200ug Take 1 [facility] ovine 0.2 7-14 tablet by ity o f mg tablet 00:00: mouth [place] 00 every 6 Medical (six) Branch hours. ascorbic 2021-0 Yes [id number] 500mg Take 1 U nivers acid, 7-14 tablet by ity of vitamin C, 00:00: mouth in [facility] as (VITAMIN C) 00 the Medical 500 mg morning. Branch docusate 2021-0 Yes [id number] 100mg Take 1 U nivers 100 mg 7-14 capsule by ity of capsule 00:00: mouth in [place] 00 the Medical morning. Branch ferrous 2021-0 Yes [id number] 324mg Take 1 Un dorinda gluconate 7-14 tablet by ity o f 324 mg 00:00: mouth in [place] (37.5 mg 00 the Medical iron) morning Branch tablet and 1 tablet in the evening. methylergon 2021-0 Yes [id number] 200ug Take 1 [facility] ovine 0.2 7-14 tablet by ity o f mg tablet 00:00: mouth [place] 00 every 6 Medical (six) Branch hours. ascorbic 2021-0 Yes [id number] 500mg Take 1 U nivers acid, 7-14 tablet by ity of vitamin C, 00:00: mouth in [facility] as (VITAMIN C) 00 the Medical 500 mg morning. Branch docusate 2021-0 Yes [id number] 100mg Take 1 U nivers 100 mg 7-14 capsule by ity of capsule 00:00: mouth in [place] 00 the Medical morning. Branch ferrous 2021-0 Yes [id number] 324mg Take 1 Un dorinda gluconate 7-14 tablet by ity o f 324 mg 00:00: mouth in [place] (37.5 mg 00 the Medical iron) morning Branch tablet and 1 tablet in the evening. methylergon 2021-0 Yes [id number] 200ug Take 1 [facility] ovine 0.2 7-14 tablet by ity o f mg tablet 00:00: mouth [place] 00 every 6 Medical (six) Branch hours. ascorbic 2021-0 Yes [id number] 500mg Take 1 U nivers acid, 7-14 tablet by ity of vitamin C, 00:00: mouth in [facility] as (VITAMIN C) 00 the Medical 500 mg morning. Branch docusate 2021-0 Yes [id number] 100mg Take 1 U nivers 100 mg 7-14 capsule by ity of capsule 00:00: mouth in [place] 00 the Medical morning. Branch ferrous 2021-0 Yes [id number] 324mg Take 1 Un dorinda gluconate 7-14 tablet by ity o f 324 mg 00:00: mouth in [place] (37.5 mg 00 the Medical iron) morning Branch tablet and 1 tablet in the evening. methylergon 2021-0 Yes [id number] 200ug Take 1 [facility] ovine 0.2 7-14 tablet by ity o f mg tablet 00:00: mouth [place] 00 every 6 Medical (six) Branch hours. ascorbic 2021-0 Yes [id number] 500mg Take 1 U nivers acid, 7-14 tablet by ity of vitamin C, 00:00: mouth in [facility] as (VITAMIN C) 00 the Medical 500 mg morning. Branch docusate 2021-0 Yes [id number] 100mg Take 1 U nivers 100 mg 7-14 capsule by ity of capsule 00:00: mouth in [place] 00 the Medical morning. Branch ferrous 2-0 Yes [id number] 324mg Take 1 Un dorinda gluconate 7-14 tablet by ity o f 324 mg 00:00: mouth in [place] (37.5 mg 00 the Medical iron) morning Branch tablet and 1 tablet in the evening. methylergon 2-0 Yes [id number] 200ug Take 1 [facility] ovine 0.2 7-14 tablet by ity o f mg tablet 00:00: mouth [place] 00 every 6 Medical (six) Branch hours. ascorbic 2021-0 Yes [id number] 500mg Take 1 U nivers acid, 7-14 tablet by ity of vitamin C, 00:00: mouth in [facility] as (VITAMIN C) 00 the Medical 500 mg morning. Branch docusate 2021-0 Yes [id number] 100mg Take 1 U nivers 100 mg 7-14 capsule by ity of capsule 00:00: mouth in [place] 00 the Medical morning. Branch ferrous 2021-0 Yes [id number] 324mg Take 1 Un dorinda gluconate 7-14 tablet by ity o f 324 mg 00:00: mouth in [place] (37.5 mg 00 the Medical iron) morning Branch tablet and 1 tablet in the evening. methylergon 2021-0 Yes [id number] 200ug Take 1 [facility] ovine 0.2 7-14 tablet by ity o f mg tablet 00:00: mouth [place] 00 every 6 Medical (six) Branch hours. ascorbic 2021-0 Yes [id number] 500mg Take 1 U nivers acid, 7-14 tablet by ity of vitamin C, 00:00: mouth in [facility] as (VITAMIN C) 00 the Medical 500 mg morning. Branch docusate 2021-0 Yes [id number] 100mg Take 1 U nivers 100 mg 7-14 capsule by ity of capsule 00:00: mouth in [place] 00 the Medical morning. Branch ferrous 2-0 Yes [id number] 324mg Take 1 Un dorinda gluconate 7-14 tablet by ity o f 324 mg 00:00: mouth in [place] (37.5 mg 00 the Medical iron) morning Branch tablet and 1 tablet in the evening. ferrous 2022-0 Yes [id number] 324mg Take 1 Un dorinda gluconate 7-14 tablet by ity o f 324 mg 00:00: mouth in [place] (37.5 mg 00 the Medical iron) morning Branch tablet and 1 tablet in the evening. ferrous 0 Yes [id number] 324mg Take 1 Un dorinda gluconate 7-14 tablet by ity o f 324 mg 00:00: mouth in [place] (37.5 mg 00 the Medical iron) morning Branch tablet and 1 tablet in the evening. ferrous 0 Yes [id number] 324mg Take 1 Un dorinda gluconate 7-14 tablet by ity o f 324 mg 00:00: mouth in [place] (37.5 mg 00 the Medical iron) morning Branch tablet and 1 tablet in the evening. ferrous 0 Yes [id number] 324mg Take 1 Un dorinda gluconate 7-14 tablet by ity o f 324 mg 00:00: mouth in [place] (37.5 mg 00 the Medical iron) morning Branch tablet and 1 tablet in the evening. ferrous Yes [id number] 324mg Take 1 Un dorinda gluconate 7-14 tablet by ity o f 324 mg 00:00: mouth in [place] (37.5 mg 00 the Medical iron) morning Branch tablet and 1 tablet in the evening. ferrous Yes [id number] 324mg Take 1 Un dorinda gluconate 7-14 tablet by ity o f 324 mg 00:00: mouth in [place] (37.5 mg 00 the Medical iron) morning Branch tablet and 1 tablet in the evening. ferrous 2022- No [id number] 324mg Take 1 U nivers gluconate 7-14 02-24 tablet by ity of 324 mg 00:00: 00:00 mouth in [place] (37.5 mg 00 :00 the Medical iron) morning Branch tablet and 1 tablet in the evening. ferrous 2022- No [id number] 324mg Take 1 U nivers gluconate 7-14 02-24 tablet by ity of 324 mg 00:00: 00:00 mouth in [place] (37.5 mg 00 :00 the Medical iron) morning Branch tablet and 1 tablet in the evening. ferrous 2022- No [id number] 324mg Take 1 U nivers gluconate 7-14 02-24 tablet by ity of 324 mg 00:00: 00:00 mouth in [place] (37.5 mg 00 :00 the Medical iron) morning Branch tablet and 1 tablet in the evening. ferrous 2021-2022- No [id number] 324mg Take 1 U nivers gluconate 7-14 -24 tablet by ity of 324 mg 00:00: 00:00 mouth in [place] (37.5 mg 00 :00 the Medical iron) morning Branch tablet and 1 tablet in the evening. semaglutide 2021- No 2.4mg inject 2.4 Univers , weight 6-29 07-28 mg under ity of loss, 2.4 00:00: 00:00 the skin [place] mg/0.75 mL 00 :00 weekly. Medica l PnIj SC Branch injection semaglutide 2021- No 2.4mg inject 2.4 Univers , weight 6-29 07-28 mg under ity of loss, 2.4 00:00: 00:00 the skin [place] mg/0.75 mL 00 :00 weekly. Medica l PnIj SC Branch injection Immunizations Ordered Filled Immunization Date Status Comments [facility] e Immunization Name Name [facility] 2021-04-15 Completed [facility] of 00:00:00 [facility] 2021-04-15 Completed University of 00:00:00 [facility] HPV9 2021-04-15 Completed University of 00:00:00 [facility] 2021-04-15 Completed [facility] of 00:00:00 [facility] 2021-04-15 Completed University of 00:00:00 [facility] HPV9 2021-04-15 Completed University of 00:00:00 [facility] HPV9 2021-04-15 Completed University of 00:00:00 [facility] HPV9 2021-04-15 Completed University of 00:00:00 [facility] HPV9 2021-04-15 Completed University of 00:00:00 [facility] HPV9 2021-04-15 Completed University of 00:00:00 [facility] HPV9 2021-04-15 Completed University of 00:00:00 [facility] HPV9 2021-04-15 Completed University of 00:00:00 [facility] HPV9 2021-04-15 Completed University of 00:00:00 [facility] HPV9 2021-04-15 Completed University of 00:00:00 [facility] 2021-04-15 Completed University of 00:00:00 [facility] HPV9 2021-04-15 Completed University of 00:00:00 [place] [facility] HPV9 2021-04-15 Completed University of 00:00:00 [place] [facility] HPV9 2021-04-15 Completed University of 00:00:00 [place] [facility] HPV9 2021-04-15 Completed University of 00:00:00 [place] [facility] HPV9 2021-04-15 Completed University of 00:00:00 [place] [facility] HPV9 2021-04-15 Completed University of 00:00:00 [place] [facility] HPV9 2021-04-15 Completed University of 00:00:00 [place] [facility] HPV9 2021-04-15 Completed University of 00:00:00 [place] [facility] HPV9 2021-04-15 Completed University of 00:00:00 [place] [facility] HPV9 2021-04-15 Completed University of 00:00:00 [place] [facility] HPV9 2020-10-22 Completed University of 00:00:00 [place] [facility] HPV9 2020-10-22 Completed University of 00:00:00 [place] [facility] HPV9 2020-10-22 Completed University of 00:00:00 [place] [facility] HPV9 2020-10-22 Completed University of 00:00:00 [place] [facility] HPV9 2020-10-22 Completed University of 00:00:00 [place] [facility] HPV9 2020-10-22 Completed University of 00:00:00 [place] [facility] HPV9 2020-10-22 Completed University of 00:00:00 [facility] HPV9 2020-10-22 Completed [facility] 00:00:00 [facility] HPV9 2020-10-22 Completed [facility] 00:00:00 [facility] HPV9 2020-10-22 Completed [facility] 00:00:00 [facility] HPV9 2020-10-22 Completed [facility] 00:00:00 [facility] HPV9 2020-10-22 Completed [facility] 00:00:00 [facility] HPV9 2020-10-22 Completed [facility] 00:00:00 [facility] HPV9 2020-10-22 Completed [facility] 00:00:00 [facility] HPV9 2020-10-22 Completed [facility] 00:00:00 [facility] HPV9 2020-10-22 Completed [facility] 00:00:00 [facility] HPV9 2020-10-22 Completed [facility] 00:00:00 [facility] HPV9 2020-10-22 Completed [facility] 00:00:00 [facility] HPV9 2020-10-22 Completed [facility] 00:00:00 [facility] HPV9 2020-10-22 Completed [facility] 00:00:00 [facility] HPV9 2020-10-22 Completed [facility] 00:00:00 [facility] HPV9 2020-10-22 Completed [facility] 00:00:00 [facility] HPV9 2020-10-22 Completed [facility] 00:00:00 [facility] HPV9 2020-10-22 Completed [facility] 00:00:00 [facility] HPV9 2020-10-22 Completed [facility] 00:00:00 [facility] HPV9 2020-02-18 Completed [facility] 00:00:00 [facility] HPV9 2020-02-18 Completed [facility] 00:00:00 [facility] HPV9 2020-02-18 Completed [facility] 00:00:00 [facility] HPV9 2020-02-18 Completed [facility] 00:00:00 [facility] HPV9 2020-02-18 Completed [facility] 00:00:00 [facility] HPV9 2020-02-18 Completed [facility] 00:00:00 [facility] HPV9 2020-02-18 Completed [facility] 00:00:00 [facility] HPV9 2020-02-18 Completed [facility] 00:00:00 [facility] HPV9 2020-02-18 Completed [facility] 00:00:00 [facility] HPV9 2020-02-18 Completed [facility] 00:00:00 [facility] HPV9 2020-02-18 Completed [facility] 00:00:00 [facility] HPV9 2020-02-18 Completed [facility] 00:00:00 [facility] HPV9 2020-02-18 Completed [facility] 00:00:00 [facility] HPV9 2020-02-18 Completed [facility] 00:00:00 [facility] HPV9 2020-02-18 Completed [facility] 00:00:00 [facility] HPV9 2020-02-18 Completed [facility] 00:00:00 [facility] HPV9 2020-02-18 Completed [facility] 00:00:00 [facility] HPV9 2020-02-18 Completed [facility] 00:00:00 [facility] HPV9 2020-02-18 Completed University of 00:00:00 [facility] HPV9 2020-02-18 Completed University of 00:00:00 [facility] HPV9 2020-02-18 Completed University of 00:00:00 [facility] HPV9 2020-02-18 Completed [facility] of 00:00:00 [facility] HPV9 2020-02-18 Completed [facility] of 00:00:00 [facility] HPV9 2020-02-18 Completed [facility] of 00:00:00 [facility] HPV9 2020-02-18 Completed [facility] of 00:00:00 [facility] TDAP 2019-07-05 Completed University of 00:00:00 [facility] MMR 2019-07-05 Completed [facility] of 00:00:00 [facility] Varicella 2019-07-05 Completed University of (varivax)(chicken 00:00:00 [place] [facility] TDAP 2019-07-05 Completed [facility] 00:00:00 [facility] MMR 2019-07-05 Completed [facility] 00:00:00 [facility] Varicella 2019-07-05 Completed [facility] (varivax)(chicken 00:00:00 [place] [facility] TDAP 2019-07-05 Completed [facility] of 00:00:00 [facility] MMR 2019-07-05 Completed [facility] of 00:00:00 [facility] Varicella 2019-07-05 Completed [facility] of (varivax)(chicken 00:00:00 [place] [facility] TDAP 2019-07-05 Completed [facility] of 00:00:00 [facility] MMR 2019-07-05 Completed [facility] of 00:00:00 [facility] Varicella 2019-07-05 Completed [facility] of (varivax)(chicken 00:00:00 [place] [facility] TDAP 2019-07-05 Completed [facility] 00:00:00 [facility] MMR 2019-07-05 Completed [facility] of 00:00:00 [facility] Varicella 2019-07-05 Completed [facility] of (varivax)(chicken 00:00:00 [place] [facility] TDAP 2019-07-05 Completed [facility] 00:00:00 [facility] MMR 2019-07-05 Completed [facility] of 00:00:00 [facility] Varicella 2019-07-05 Completed [facility] (varivax)(chicken 00:00:00 [place] [facility] TDAP 2019-07-05 Completed [facility] 00:00:00 [facility] MMR 2019-07-05 Completed [facility] of 00:00:00 [facility] Varicella 2019-07-05 Completed [facility] of (varivax)(chicken 00:00:00 [place] [facility] TDAP 2019-07-05 Completed [facility] 00:00:00 [facility] MMR 2019-07-05 Completed [facility] of 00:00:00 [facility] Varicella 2019-07-05 Completed [facility] of (varivax)(chicken 00:00:00 [place] [facility] TDAP 2019-07-05 Completed [facility] 00:00:00 [facility] MMR 2019-07-05 Completed [facility] 00:00:00 [facility] Varicella 2019-07-05 Completed [facility] (varivax)(chicken 00:00:00 [place] [facility] TDAP 2019-07-05 Completed [facility] 00:00:00 [facility] MMR 2019-07-05 Completed [facility] of 00:00:00 [facility] Varicella 2019-07-05 Completed [facility] (varivax)(chicken 00:00:00 [place] [facility] TDAP 2019-07-05 Completed [facility] of 00:00:00 [facility] MMR 2019-07-05 Completed [facility] of 00:00:00 [facility] Varicella 2019-07-05 Completed [facility] (varivax)(chicken 00:00:00 [place] [facility] TDAP 2019-07-05 Completed [facility] of 00:00:00 [facility] MMR 2019-07-05 Completed [facility] of 00:00:00 [facility] Varicella 2019-07-05 Completed [facility] of (varivax)(chicken 00:00:00 [place] [facility] TDAP 2019-07-05 Completed [facility] of 00:00:00 [facility] MMR 2019-07-05 Completed [facility] of 00:00:00 [facility] Varicella 2019-07-05 Completed [facility] of (varivax)(chicken 00:00:00 [place] [facility] TDAP 2019-07-05 Completed [facility] of 00:00:00 [facility] MMR 2019-07-05 Completed [facility] of 00:00:00 [facility] Varicella 2019-07-05 Completed [facility] (varivax)(chicken 00:00:00 [place] [facility] TDAP 2019-07-05 Completed [facility] of 00:00:00 [facility] MMR 2019-07-05 Completed [facility] of 00:00:00 [facility] Varicella 2019-07-05 Completed [facility] (varivax)(chicken 00:00:00 [place] [facility] TDAP 2019-07-05 Completed [facility] 00:00:00 [facility] MMR 2019-07-05 Completed [facility] of 00:00:00 [facility] Varicella 2019-07-05 Completed [facility] (varivax)(chicken 00:00:00 [place] [facility] TDAP 2019-07-05 Completed [facility] 00:00:00 [facility] MMR 2019-07-05 Completed [facility] of 00:00:00 [facility] Varicella 2019-07-05 Completed [facility] (varivax)(chicken 00:00:00 [place] [facility] TDAP 2019-07-05 Completed [facility] 00:00:00 [facility] MMR 2019-07-05 Completed [facility] of 00:00:00 [facility] Varicella 2019-07-05 Completed [facility] (varivax)(chicken 00:00:00 [place] [facility] TDAP 2019-07-05 Completed [facility] of 00:00:00 [facility] MMR 2019-07-05 Completed [facility] of 00:00:00 [facility] Varicella 2019-07-05 Completed [facility] (varivax)(chicken 00:00:00 [place] [facility] TDAP 2019-07-05 Completed [facility] 00:00:00 [facility] MMR 2019-07-05 Completed [facility] of 00:00:00 [facility] Varicella 2019-07-05 Completed [facility] (varivax)(chicken 00:00:00 [place] [facility] TDAP 2019-07-05 Completed [facility] of 00:00:00 [facility] MMR 2019-07-05 Completed [facility] of 00:00:00 [facility] Varicella 2019-07-05 Completed [facility] (varivax)(chicken 00:00:00 [place] [facility] TDAP 2019-07-05 Completed [facility] of 00:00:00 [facility] MMR 2019-07-05 Completed [facility] of 00:00:00 [facility] Varicella 2019-07-05 Completed [facility] (varivax)(chicken 00:00:00 [place] [facility] TDAP 2019-07-05 Completed [facility] of 00:00:[address] [facility] MMR 2019-07-05 Completed [facility] of 00:00:00 [facility] Varicella 2019-07-05 Completed [facility] (varivax)(chicken 00:00:00 [place] [facility] TDAP 2019-07-05 Completed [facility] of 00:00:[address] [facility] MMR 2019-07-05 Completed [facility] 00:00:00 [facility] Varicella 2019-07-05 Completed [facility] (varivax)(chicken 00:00:00 [place] [facility] TDAP 2019-07-05 Completed [facility] of 00:00:[address] [facility] MMR 2019-07-05 Completed [facility] of 00:00:00 [facility] Varicella 2019-07-05 Completed University of (varivax)(chicken 00:00:00 [facility] edical pox) Branch TDAP 2017-10-26 Completed University of 00:00:00 [facility] TDAP 2017-10-26 Completed [facility] of 00:00:00 [facility] TDAP 2017-10-26 Completed [facility] of 00:00:00 [facility] TDAP 2017-10-26 Completed University of 00:00:[address] [facility] TDAP 2017-10-26 Completed [facility] of 00:00:[address] [facility] TDAP 2017-10-26 Completed [facility] of 00:00:00 [facility] TDAP 2017-10-26 Completed [facility] of 00:00:00 [facility] TDAP 2017-10-26 Completed [facility] of 00:00:00 [facility] TDAP 2017-10-26 Completed [facility] of 00:00:[address] [facility] TDAP 2017-10-26 Completed [facility] of 00:00:00 [facility] TDAP 2017-10-26 Completed [facility] of 00:00:00 [facility] TDAP 2017-10-26 Completed [facility] of 00:00:[address] [facility] TDAP 2017-10-26 Completed [facility] of 00:00:00 [facility] TDAP 2017-10-26 Completed [facility] of 00:00:00 [facility] TDAP 2017-10-26 Completed [facility] of 00:00:00 [facility] TDAP 2017-10-26 Completed [facility] of 00:00:00 [facility] TDAP 2017-10-26 Completed [facility] of 00:00:00 [facility] TDAP 2017-10-26 Completed [facility] 00:00:00 [facility] TDAP 2017-10-26 Completed [facility] 00:00:00 [facility] TDAP 2017-10-26 Completed [facility] 00:00:00 [facility] TDAP 2017-10-26 Completed [facility] 00:00:00 [facility] TDAP 2017-10-26 Completed [facility] 00:00:00 [facility] TDAP 2017-10-26 Completed [facility] 00:00:00 [facility] TDAP 2017-10-26 Completed [facility] 00:00:00 [facility] TDAP 2017-10-26 Completed [facility] 00:00:00 [facility] TDAP 2015-05-27 Completed [facility] 00:00:00 [facility] TDAP 2015-05-27 Completed [facility] 00:00:00 [facility] TDAP 2015-05-27 Completed [facility] 00:00:00 [facility] TDAP 2015-05-27 Completed [facility] 00:00:00 [facility] TDAP 2015-05-27 Completed [facility] 00:00:00 [facility] TDAP 2015-05-27 Completed [facility] 00:00:00 [facility] TDAP 2015-05-27 Completed [facility] 00:00:00 [facility] TDAP 2015-05-27 Completed [facility] 00:00:00 [facility] TDAP 2015-05-27 Completed [facility] 00:00:00 [facility] TDAP 2015-05-27 Completed [facility] 00:00:00 [facility] TDAP 2015-05-27 Completed [facility] 00:00:00 [facility] TDAP 2015-05-27 Completed [facility] 00:00:00 [facility] TDAP 2015-05-27 Completed [facility] 00:00:00 [facility] TDAP 2015-05-27 Completed [facility] 00:00:00 [facility] TDAP 2015-05-27 Completed [facility] 00:00:00 [facility] TDAP 2015-05-27 Completed [facility] 00:00:00 [facility] TDAP 2015-05-27 Completed [facility] 00:00:00 [facility] TDAP 2015-05-27 Completed [facility] 00:00:00 [facility] TDAP 2015-05-27 Completed [facility] 00:00:00 [facility] TDAP 2015-05-27 Completed [facility] 00:00:00 [facility] TDAP 2015-05-27 Completed [facility] of 00:00:00 [facility] TDAP 2015-05-27 Completed [facility] of 00:00:00 [facility] TDAP 2015-05-27 Completed [facility] of 00:00:00 [facility] TDAP 2015-05-27 Completed [facility] of 00:00:00 [facility] TDAP 2015-05-27 Completed [facility] of 00:00:00 [facility] Influenza Virus 2015-03-30 Completed Universit y of [facility] IM 3+ 00:00:00 [facility] Influenza Virus 2015-03-30 Completed Universit y of [facility] IM 3+ 00:00:00 [facility] Influenza Virus 2015-03-30 Completed Universit y of [facility] IM 3+ 00:00:00 [facility] Influenza Virus 2015-03-30 Completed [facility]it y of [facility] IM 3+ 00:00:00 [facility] Influenza Virus 2015-03-30 Completed Universit y of [facility] IM 3+ 00:00:00 [facility] Influenza Virus 2015-03-30 Completed Universit y of [facility] IM 3+ 00:00:00 [facility] Influenza Virus 2015-03-30 Completed [facility]it y of [facility] IM 3+ 00:00:00 [facility] Influenza Virus 2015-03-30 Completed Universit y of [facility] IM 3+ 00:00:00 [facility] Influenza Virus 2015-03-30 Completed [facility]it y of [facility] IM 3+ 00:00:00 [facility] Influenza Virus 2015-03-30 Completed [facility]it y of [facility] IM 3+ 00:00:00 [facility] Influenza Virus 2015-03-30 Completed [facility]it y of [facility] IM 3+ 00:00:00 [facility] Influenza Virus 2015-03-30 Completed Universit y of [facility] IM 3+ 00:00:00 [facility] Influenza Virus 2015-03-30 Completed Universit y of [facility] IM 3+ 00:00:00 [facility] Influenza Virus 2015-03-30 Completed [facility]it y of [facility] IM 3+ 00:00:00 [facility] Influenza Virus 2015-03-30 Completed [facility]it y of [facility] IM 3+ 00:00:00 [facility] Influenza Virus 2015-03-30 Completed [facility]it y of [facility] IM 3+ 00:00:00 [facility] Influenza Virus 2015-03-30 Completed Universit y of [facility] IM 3+ 00:00:00 [facility] Influenza Virus 2015-03-30 Completed Universit y of [facility] IM 3+ 00:00:00 [facility] Influenza Virus 2015-03-30 Completed Universit y of [facility] IM 3+ 00:00:00 [facility] Influenza Virus 2015-03-30 Completed [facility]it y of [facility] IM 3+ 00:00:00 [facility] Influenza Virus 2015-03-30 Completed [facility]it y of [facility] IM 3+ 00:00:00 [facility] Influenza Virus 2015-03-30 Completed [facility]it y of [facility] IM 3+ 00:00:00 [facility] Influenza Virus 2015-03-30 Completed [facility]it y of [facility] IM 3+ 00:00:00 [facility] Influenza Virus 2015-03-30 Completed Universit y of [facility] IM 3+ 00:00:00 [facility] Influenza Virus 2015-03-30 Completed Universit y of [facility] IM 3+ 00:00:00 [facility] Td 2009-06-05 Completed [facility] of 00:00:00 [facility] Td 2009-06-05 Completed [facility] of 00:00:00 [facility] Td 2009-06-05 Completed [facility] of 00:00:00 [facility] Td 2009-06-05 Completed [facility] of 00:00:00 [facility] Td 2009-06-05 Completed [facility] of 00:00:00 [facility] Td 2009-06-05 Completed [facility] of 00:00:00 [facility] Td 2009-06-05 Completed [facility] of 00:00:00 [facility] Td 2009-06-05 Completed [facility] of 00:00:00 [facility] Td 2009-06-05 Completed [facility] of 00:00:00 [facility] Td 2009-06-05 Completed [facility] of 00:00:00 [facility] Td 2009-06-05 Completed [facility] of 00:00:00 [facility] Td 2009-06-05 Completed [facility] of 00:00:00 [facility] Td 2009-06-05 Completed [facility] of 00:00:00 [facility] Td 2009-06-05 Completed [facility] of 00:00:00 [facility] Td 2009-06-05 Completed [facility] of 00:00:00 [facility] TD, NOS 2009-06-05 Completed [facility] 00:00:00 [facility] TD, NOS 2009-06-05 Completed [facility] 00:00:00 [facility] TD, NOS 2009-06-05 Completed [facility] 00:00:00 [facility] TD, NOS 2009-06-05 Completed [facility] 00:00:00 [facility] TD, NOS 2009-06-05 Completed [facility] 00:00:00 [facility] TD, NOS 2009-06-05 Completed [facility] 00:00:00 [facility] TD, NOS 2009-06-05 Completed [facility] 00:00:00 [facility] TD, NOS 2009-06-05 Completed [facility] 00:00:00 [facility] TD, NOS 2009-06-05 Completed [facility] of 00:00:[address] [facility] TD, NOS 2009-06-05 Completed University of 00:00:00 [facility] Vital Signs Vital Name Observation Time Observation Value Comments Source Systolic blood 2022-07-29 17:34:00 98 mm[Hg] [facility] Diastolic blood 2022-07-29 17:34:00 66 mm[Hg] Unive rsity of [facility] Heart rate 2022-07-29 17:34:00 89 /min [facility] Body weight 2022-07-29 17:34:[address] [facility] BMI 2022-07-29 17:34:00 31.61 kg/m2 [facility] Oxygen saturation in 2022-07-29 17:34:00 99 /min [facility] Arterial blood by [facility] Pulse oximetry Branch Systolic blood 2022-07-19 19:39:00 104 mm[Hg] [facility]iver [facility]ity of [facility] Diastolic blood 2022-07-19 19:39:00 70 mm[Hg] Unive rsity of [facility] Heart rate 2022-07-19 19:39:00 81 /min [facility] Respiratory rate 2022-07-19 19:39:00 18 /[facility] 2022-07-19 19:39:[address] [facility] Body weight 2022-07-19 19:39:[address] [facility] BMI 2022-07-19 19:39:00 29.88 kg/m2 [facility] Systolic blood 2022-05-31 02:15:00 121 mm[Hg] Univer sity of pressure [facility] Diastolic blood 2022-05-31 02:15:00 82 mm[Hg] Unive rsity of [facility] Heart rate 2022-05-31 02:15:00 94 /min [facility] Respiratory rate 2022-05-31 02:15:00 18 /min Univ ers[facility] Body weight 2022-05-31 02:15:00 76.749 kg [facility] BMI 2022-05-31 02:15:00 30.45 kg/m2 [facility] Oxygen saturation in 2022-05-31 02:15:00 100 /min [facility] Arterial blood by [facility] Pulse oximetry Branch Systolic blood 2022-02-28 13:49:00 102 mm[Hg] Univer [facility]ity of [facility] Diastolic blood 2022-02-28 13:49:00 70 mm[Hg] Unive rsity of [facility] Heart rate 2022-02-28 13:49:00 81 /min [facility] Body temperature 2022-02-28 13:49:00 36.5 Rosanne Univ [facility] Respiratory rate 2022-02-28 13:49:00 18 /min Univ ers[facility] Body height 2022-02-28 13:49:00 158.8 cm [facility] Body weight 2022-02-28 13:49:00 79.379 kg [facility] BMI 2022-02-28 13:49:00 31.50 kg/m2 [facility] Systolic blood 2021-12-30 13:07:00 97 mm[Hg] [facility]iver [facility] Diastolic blood 2021-12-30 13:07:00 64 mm[Hg] Unive rsity of [facility] Heart rate 2021-12-30 13:07:00 71 /min [facility] Respiratory rate 2021-12-30 13:07:00 14 /min [facility] Body height 2021-12-30 13:07:[address] [facility] Body weight 2021-12-30 13:07:[address] [facility] BMI 2021-12-30 13:07:00 33.33 kg/m2 [facility] Procedures Procedure Date / Time Performing Clinician Source Performed FERRITIN SERUM 2022-07-29 19:34:00 Delano [facility] CBC WITH DIFF 2022-07-29 19:34:00 Delano [facility] GC & CHLAMYDIA AMPLIFIED 2022-07-19 19:41:00 Lee Iyer [facility] TRICHOMONAS AMPLIFIED 2022-07-19 19:41:00 Lee Iyer [facility] POCT MOLECULAR FLU 2022-05-31 02:18:00 Unknown, Attending [facility] POCT SARS-COV-2 ANTIGEN 2022-05-31 02:11:00 Mohan Amezquita [facility] (BINAX NOW) [facility] DISABILITY/FMLA 2022-04-02 05:01:00 Doctor Unassigned, No [facility] POCT TEST 2022-02-28 00:00:[address] [facility] AUTHORIZATION FOR 2022-01-06 05:01:00 Doctor Unassigned, No [facility] RELEASE OF [facility] DISCLOSURE AND CONSENT, 2021-05-05 06:01:00 Doctor Unassigned, N o [facility] MEDICAL AND SURGICAL [facility] PROCEDURES Encounters Start End Encounter Admission Attending Care Care Encounter Source Date/Time Date/Time Type Type Clinicians Facility Department ID 2023-03-01 2023-03-01 Outpatient R KAHLIL GOMEZ [facility] [id number] Univers 13:30:00 13:30:00 [facility] 2022-11-04 2022-11-04 Outpatient R DELANO [facility] [id number] Univers 10:20:00 10:20:00 JOLYNN [facility] 2022-11-042022-11-04 Case Erich [facility] [id number] Univers 00:00:00 00:00:00 Management Jesus MULTISPEC [id number] [id number] [id number] [facility] [place] [facility] 2022-11-02 2022-11-02 YNES [place] [id number] Univers 00:00:00 00:00:00 Milagros KEBDEE [id number] i [facility] [id number] [place] as [id number] 044 Branch 2022-11-02 2022-11-02 Patient Doctor [facility] [id number] Univers 00:00:00 00:00:00 Secure Msg Unassigned, MULTISPEC [id number] [place]y [id number] [id number] [facility] [place] [facility] 2022-09-23 2022-09-23 Bello Call Yeny [facility] 1.2.840.114 [id number] Univers 00:00:00 00:00:00 Management Iva MULTISPEC 350.1.13.10 [place] [id number] [facility] [address] [place] [facility] 2022-07-29 2022-07-29 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-Lab [facility] 1.2.840.114 [id number] Univers 13:30:00 13:45:00 Visit Jolynn Amezquita 350.1.13.10 it[place] [id number] [facility] [address] [place] [facility] 2022-07-29 2022-07-29 Outpatient R DELANO MSALISHA [facility] [id number] Univers 11:20:00 12:13:37 JOLYNN porter of [facility] 2022-07-29 2022-07-29 Office Delano [facility] 1.2.751.762 [id number] Univers 11:20:00 12:13:37 Visit Jolynn OFELIA 350.1.13.10 ity of [place] 4.2.7.2.686 [facility] [id number] [facility] AND [address] DIABETES CLINIC 2022-07-19 2022-07-19 Outpatient R JAYLON LEE [facility] B [id number] Univers 13:30:00 13:43:33 LEE IYER ity [facility] 2022-07-19 2022-07-19 Office [facility] 1.2.840.114 [id number] Univers 13:30:00 13:43:33 Visit Lee DENICE 350.1.13.10 it y of WOMEN'S 4.2.7.2.686 [facility] [id number] [facility] [address] 2022-07-19 2022-07-19 Outpatient R SHARONDA [facility] [id number] Univers 11:15:00 11:15:00 [facility]22-[facility]-30 2022-05-30 Urgent Mohan Amezquita [facility] 1.2.840.11 [id number] Univers 20:00:00 20:20:00 Care Unknown, Attending HEALTH 350.1.13.10 ity of [place] 4.2.7.2.686 [place] as ERNA?BLEA [id number] [address] MEDICAL OFFICE BUILDING 2022-05-30 2022-05-30 [facility] [id number] Univers 20:00:00 20:00:00 REEYVES ity [facility] 2022-04-18 2022-04-18 Out[facility] [id number] Univers 11:20:00 11:20:00 JOLYNN ity [facility] 2022-04-14 2022-04-14 Telephone Delano [facility] 1.2.840.114 [id number] Univers 00:00:00 00:00:00 Jolynn MULTISPEC 350.1.13.10 [place] [id number] [address] DIABETES CLINIC 2022-04-11 2022-04-11 Pre Visit MARY ALICE Lehman 1.2.517.454 [id number] [id number] Univers 00:00:00 00:00:00 Outreach Bernice L BALBUE[place] 350.1.13.10 i ty [place] [id number] [facility] [address] 2022-04-02 2022-04-02 Orders Doctor YNES 1.2.840.114 [id number] Univers 00:00:00 00:00:00 Only Unassigned, DELIO 350.1.13.10 ity of [place] [facility] 4.2.7.2.686 [place] as [id number] [facility] [address] 2022-03-29 2022-03-29 Patient Delano MSALISHA 1.2.541.220 [id number] Univers 00:00:00 00:00:00 Secure Msg Jolynn MULTISPEC 350.1.13.10 [place] [id number] [address] DIABETES CLINIC 2022-03-29 2022-03-29 [facility] 1.2.840.114 [id number] Univers 00:00:00 00:00:00 Jolynn MULTISPEC 350.1.13.10 [place] [id number] [address] DIABETES CLINIC 2022-03-28 2022-03-28 Outpatient Betty AMEZQUITA [facility] [id number] Univers 14:20:00 14:20:00 JOLYNN ity [facility] 2022-03-17 2022-03-17 Outpatient Betty AMEZQUITA [facility] [id number] Univers 11:00:00 11:00:00 JOLYNN ity [facility] 2022-03-09 2022-03-09 Outpatient Betty AMEZQUITA [facility] [id number] Univers 14:20:00 14:20:00 JOLYNN ity [facility] 2022-02-28 2022-02-28 Outpatient R NATHANJONJUDY [facility] [id number] Univers 08:30:00 09:10:34 RICK ity [facility] 2022-02-28 2022-02-28 Office Rick Mcdonough [facility] 1.2.840.11 [id number] Univers 08:30:00 09:10:34 Visit GomezElicrys CANTRELL 350.1.13.10 ity of [place] 4.[place].2.[place] [id number] [address] 2022-02-23 2022-02-23 Outpatient R KAHLIL GOMEZ [facility] [id number] Univers 13:30:00 13:30:00 ity of [facility] 2022-02-03 2022-02-03 Out[facility] [id number] Univers 07:40:00 07:40:00 JOLYNN ity [facility] 2022-01-17 2022-01-[address] [facility] 1.2.840.114 [id number] Univers 00:00:00 00:00:00 Jolynn MULTISPEC 350.1.13.10 ity of IALTY 4.2.7.2.686 [facility] [id number] [address] [facility] CLINIC 2022-01-17 2022-01-[address] [facility] 1.2.185.695 [id number] Univers 00:00:00 00:00:00 Secure Msg Jolynn MULTISPEC 350.1.13.10 [place] [id number] [address] DIABETES CLINIC 2022-01-07 2022-01-07 Outpatient R KAHLIL GOMEZ [facility] [id number] Univers 11:00:00 11:00:00 ity of [facility] 2022-01-06 2022-01-[address] 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-Lab [facility] 1.2.840.114 [id number] Univers 08:30:00 08:45:00 Visit Jolynn Amezquita MULTISPEC 350.1.13.10 ity of IAL[place] 4.2.7.2.686 [facility] [place] [id number] [address] DIABETES CLINIC 2021-12-30 2021-12-30 Outpatient R DELANO [facility] [id number] Univers 08:30:00 08:30:00 JOLYNN porter [facility] 2021-12-30 2021-12-30 Outpatient R DELANO [facility] [id number] Univers 08:00:00 08:25:30 [facility] 2021-12-30 2021-12-30 Office Delano [facility] 1.2.526.465 [id number] Univers 08:00:00 08:25:30 Visit Jolynn GILBERT 350.1.13.10 ity of [place] 4.2.7.2.686 [facility] [place] [id number] [address] DIABETES CLINIC 2021-12-29 2021-12-29 Refill Doctor [facility] 1.2.840.114 [id number] Univers 00:00:00 00:00:00 Unassigned, MULTISPEC 350.1.13.10 ity of [place] [facility] 4.2.7.2.686 [facility] [place] [id number] [address] DIABETES CLINIC 2021-12-21 2021-12-21 Outpatient R KAHLIL GOMEZ [facility] [id number] Univers 14:30:00 15:45:44 ity of [facility] 2021-12-21 2021-12-21 Office Kahlil Gomez [facility] 1.2.883.320 [id number] Univers 14:30:00 15:45:44 Visit Ken CANTRELL 350.1.13.10 i ty of [place] [id number] [address] 2021-12-20 2021-12-20 Outpatient R DELANO [facility] [id number] Univers 11:20:00 11:20:00 JOLYNN ity of [facility] 2021-12-17 2021-12-17 Transition MARY ALICE Pinzon 1.2.840.114 [id number] Univers 00:00:00 00:00:00 of Care Linsey BALBUENA 350.1.13.10 i [place] [id number] [facility] [address] 2021-12-13 2021-12-16 Inpatient X KAHLIL GOMEZ [facility] MEDICAL STAFF DIRECTOR [id number] Univers 18:07:00 10:15:00 ity of [facility] 2021-12-13 2021-12-16 Hospital Aamnda Boudreaux Betty [facility] 1.2.840.1 [id number] Univers 18:07:00 10:15:00 Encounter Kahlil Gomez ÓSCAR 350.1.13.10 it[place] of [place]2.[place].2.[place] [id number] [facility] [address] 2021-12-14 2021-12-14 [facility] 1.2.840.114 [id number] Univers 15:50:00 18:00:00 Event Satish Olivares [place] 350.1.13.10 ity of [place].2.7.2.[place]ICAL [id number] [facility] [address] 2021-12-14 2021-12-14 Surgery Kahlil Gomez [facility] 1.2.525.250 [id number] Univers 14:45:00 15:59:00 Cam [place] 350.1.13.10 i ty of [place] 4.2.7.2.686 [place] [id number] [place] [address] [address] 2021-12-01 2021-12-01 Patient Delano [facility] 1.2.451.723 [id number] Univers 00:00:00 00:00:00 Secure Msg Jolynn MULTISPEC 350.1.13.10 ity of I[place] 4.2.7.2.686 [facility] [id number] [address] DIABETES CLINIC 2021-11-22 2021-11-22 Workers' Compensation Claims Supervisor [facility] 1.2.840.114 [id number] Univers 14:30:00 14:45:00 Visit Jolynn Amezquita MULTISPEC 350.1.13.10 ity of I[place] 4.2.7.2.686 [facility] [id number] [address] DIABETES CLINIC 2021-11-22 2021-11-22 Outpatient R DELANO [facility] [id number] Univers 14:30:00 14:30:00 JOLYNN [facility] 2021-11-15 2021-11-15 Outpatient R SILVIO [facility] [id number] Univers 11:15:00 11:37:17 BRYAN [facility] 2021-11-15 2021-11-15 Laboratory Only, [facility] Uc Test [facility] 1.2.8 40.114 [id number] Univers 11:15:00 11:30:00 Only Unknown, Attending LELATANYA 350.1.13.10 ity [facility] 4.2.7.2.686 [facility] [id number] [address] [place] 2021-11-15 2021-11-15 Outpatient R DILLON, [facility] [id number] Univers 11:15:00 11:15:00 ATTENDING itvandana [facility] 2021-11-15 2021-11-15 Outpatient R SILVIO [facility] [id number] Univers 11:15:00 11:15:00 BRYAN [facility] 2021-11-15 2021-11-15 Outpatient R PEDRITO [facility] [id number] Univers 10:30:00 10:30:00 JAROCHO [facility] 2021-11-12 2021-11-12 Outpatient R KAHLIL GOMEZ [facility] [id number] Univers 11:00:00 11:00:00 ity [facility] 2021-11-12 2021-11-12 Outpatient R KAHLIL GOMEZ [facility] [id number] Univers 11:00:00 11:00:00 ity of [facility] 2021-11-11 2021-11-11 Outpatient R COLLINSadeSelene [facility] [id number] Univers 16:00:00 16:00:00 JESUS itvandana [facility] 2021-11-11 2021-11-11 Outpatient R COLLINSadeSelene [facility] [id number] Univers 16:00:00 16:00:00 JESUS vandana [facility] 2021-11-11 2021-11-11 [facility] 1.2.840.114 [id number] Univers 00:00:00 00:00:00 Jolynn MULTISPEC 350.1.13.10 it[place] [id number] [address] DIABETES CLINIC 2021-11-11 2021-11-11 Patient Delano [facility] 1.2.183.379 [id number] Univers 00:00:00 00:00:00 Secure Msg Jolynn MULTISPEC 350.1.13.10 it[place] [id number] [address] DIABETES CLINIC 2021-11-11 2021-11-11 Patient Michela Monsalve [facility] 1.2.840.114 [id number] Univers 00:00:00 00:00:00 Secure Msg A [place] 350.1.13.10 ity of [place] 4.2.7.2.686 [place] [id number] [address] 2021-11-11 2021-11-11 Patient Delano [facility] 1.2.246.590 [id number] Univers 00:00:00 00:00:00 Secure Msg Jolynn MULTISPEC 350.1.13.10 ity of [place] 4.2.7.2.686 [place] [id number] [address] DIABETES CLINIC 2021-11-10 2021-11-10 Workers' Compensation Claims Supervisor [facility] 1.2.840.114 [id number] Univers 16:15:00 16:30:00 Visit Amezquita, Jolynn MULTISPEC 350.1.13.10 ity of IALTY 4.2.7.2.686 [facility] [id number] [address] DIABETES CLINIC 2021-11-10 2021-11-10 Out[facility] [id number] Univers 16:15:00 16:15:00 JOLYNN ity [facility] 2021-11-10 2021-11-10 [facility] 1.2.503.753 [id number] [facility] 15:40:00 16:00:00 Visit Jolynn DICKERSONPEC 350.1.13.10 ity of IAL[place] 4.2.7.2.686 [facility] [place] [id number] [address] DIABETES CLINIC 2021-11-10 2021-11-10 Outpatient [facility] [id number] Univers 15:40:00 15:40:00 [facility] 2021-11-03 2021-11-03 [facility] 1.2.840.114 [id number] Univers 00:00:00 00:00:00 Jolynn MULTISPEC 350.1.13.10 ity of IALTY 4.2.7.2.686 [facility] [place] [id number] [address] DIABETES CLINIC 2021-10-25 2021-10-[address] [facility] 1.2.706.674 [id number] Univers 00:00:00 00:00:00 Secure Msg Jolynn MULTISPEC 350.1.13.10 ity of IALTY 4.2.7.2.686 [facility] [place] [id number] [address] DIABETES CLINIC 2021-10-22 2021-10-22 Outpatient R KAHLIL GOMEZ [facility] [id number] Univers 11:00:00 13:24:39 ity of [facility] 2021-10-22 2021-10-22 Routine Kahlil Gomez [facility] KARLI 1.2.840.114 [id number] Univers 11:00:00 13:24:39 Ken GALDAMEZ 350.1.13.10 i ty of Visit [place].2.[place] [id number] [address] 2021-10-22 2021-10-22 Outpatient R PATRICIA KAHLIL [facility] [id number] Univers 11:00:00 13:24:39 ity of [facility] 2021-10-22 2021-10-22 Telephone Kahlil Gomez [facility] KARLI 1.2.840.114 [id number] Univers 00:00:00 00:00:00 Ken GALDAMEZ 350.1.13.10 it y of [place] 4[place].2.[place] [id number] [address] 2021-10-21 2021-10-21 Patient Beth, [facility] 1.2.840.114 [id number] Univers 00:00:00 00:00:00 Secure Msg Halley ÓSCAR 350.1.13.10 it[place] of [place] [id number] [address] 2021-10-20 2021-10-20 Laboratory Only, Cori [facility] Test [facility] 1.2. 840.114 [id number] Univers 13:20:00 13:35:00 Only Tomas Mcghee MULTISPEC 350.1.13 .10 ity of [place].2.7.2.686 [place] [id number] [facility] AND [address] DIABETES CLINIC 2021-10-20 2021-10-20 Outpatient R TOMAS MCGHEE [facility] [id number] Univers 13:20:00 13:20:00 ity of [facility] 2021-10-20 2021-10-20 Outpatient R TOMAS MCGHEE [facility] [id number] Univers 13:20:00 12:34:51 ity of [facility] 2021-10-12 2021-10-12 Outpatient R KAHLIL GOMEZ [facility] [id number] Univers 14:00:00 15:12:05 ity of [facility] 2021-10-12 2021-10-12 Initial Kahlil Gomez [facility] 1.2.057.548 [id number] Univers 14:00:00 15:12:05 Cam ÓSCAR 350.1.13.10 ity of Visit [place]2.7.2.686 [place] [facility] [id number] [place] dical [address] 2021-10-12 2021-10-12 Orders Doctor YNES 1.2.840.114 [id number] Univers 00:00:00 00:00:00 Only Unassigned, DELIO 350.1.13.10 ity of [place] [facility] 4.2.7.2.686 [place] [id number] [place] [address] [address] 2021-10-08 2021-10-08 [facility] [id number] Univers 13:20:00 13:20:00 JOLYNN ity [facility] 2021-09-27 2021-09-27 Out[facility] [id number] Univers 11:20:00 11:20:00 JOLYNN [facility] 2021-09-24 2021-09-24 Outpatient [facility] [id number] Univers 12:00:00 12:00:00 JOLYNN y [facility] 2021-09-22 2021-09-22 [facility] 1.2.699.986 [id number] Univers 00:00:00 00:00:00 Secure Msg Jolynn GILBERT 350.1.13.10 ity of [place].2.686 [place] [id number] [facility] AND [place] [address] [address] DIABETES CLINIC 2021-09-08 2021-09-08 Office Nena [facility] 1.2.865.944 [id number] Univers 13:00:00 14:37:31 Visit Celeste GILBERT 350.1.13.10 it[place].2.[place] [id number] [address] DIABETES CLINIC 2021-09-08 2021-09-08 Outpatient Betty ORTEGA [facility] [id number] Univers 13:00:00 14:37:31 CELESTE vandana [facility] 2021-09-08 2021-09-08 Outpatient Betty FRANCESNENA [facility] 93437 [id number] Univers 13:00:00 14:37:31 CELESTESUZETTE porter [facility] 2021-09-08 2021-09-08 Outpatient Betty ORTEGA [facility] [id number] Univers 13:00:00 13:00:00 CELESTE vandana [facility] 2021-09-08 2021-09-08 Outpatient Betty ORTEGA [facility] [id number] Univers 13:00:00 13:00:00 [facility] 2021-09-06 2021-09-06 Outpatient R DELANO [facility] [id number] Univers 11:40:00 11:40:00 JOLYNN [facility] 2021-09-06 2021-09-06 [facility] 1.2.840.114 [id number] Univers 00:00:00 00:00:00 Jolynn MULTISPEC 350.1.13.10 ity of IALTY 4.2.7.2.686 [facility] [place] [id number] [address] [facility]ES CLINIC 2021-09-06 2021-09-06 [facility]ill [facility] 1.2.476.663 [id number] Univers 00:00:00 00:00:00 Jolynn MULTISPEC 350.1.13.10 ity of IALTY 4.2.7.2.686 [facility] [id number] [address] DIABETES CLINIC 2021-08-30 2021-08-30 [facility] 1.2.914.860 [id number] Univers 11:40:00 12:00:00 Visit Jolynn MULTISPEC 350.1.13.10 ity of IALTY 4.2.7.2.686 [facility] [id number] [address] DIABETES CLINIC 2021-08-30 2021-08-30 Outpatient R DELANO [facility] [id number] Univers 11:40:00 11:40:00 JOLYNN ity [facility] 2021-08-27 2021-08-27 Patient Delano [facility] 1.2.004.380 [id number] Univers 00:00:00 00:00:00 Secure Msg Jolynn MULTISPEC 350.1.13.10 [place] [id number] [address] DIABETES CLINIC 2021-08-12 2021-08-12 Workers' Compensation Claims Supervisor [facility] 1.2.840.114 [id number] Univers 11:30:00 11:45:00 Visit Jolynn AmezquitaPEC 350.1.13.10 it[place] [id number] [address] DIABETES CLINIC 2021-08-12 2021-08-12 Out[facility] [id number] Univers 11:30:00 11:30:00 [facility] 2021-06-28 2021-06-28 Out[facility] [id number] Univers 15:40:00 15:40:00 JOLYNN ity [facility] 2021-06-17 2021-06-17 Telephone MYKE Jerry 1.2.840.114 [id number] Univers 00:00:00 00:00:00 [facility] 350.1.13.10 i ty of CL[place]2.7.2.[place] [id number] [address] 2021-05-31 2021-05-31 Patient Delano [facility] 1.2.504.886 [id number] Univers 00:00:00 00:00:00 Secure Msg Jolynn MULTISPEC 350.1.13.10 it[place].2.[place] [id number] [address] DIABETES CLINIC 2021-05-21 2021-05-21 Orders Doctor QUICK 1.2.840.114 [id number] Univers 00:00:00 00:00:00 Only Unassigned, DELIO 350.1.13.10 ity of [place] HOSPITAL 4.2.7.2.686 [place] [id number] [address] 2021-05-19 2021-05-19 Outpatient [facility] [id number] Univers 16:20:00 16:20:00 JOLYNN ity [facility] 2021-05-19 2021-05-19 Patient Delano [facility] 1.2.805.389 [id number] Univers 00:00:00 00:00:00 Secure Msg Jolynn MULTISPEC 350.1.13.10 it[place].2.[place] [id number] [address] DIABETES CLINIC 2021-05-05 2021-05-05 Office Ethan Jerry [facility] 1.2.840. 114 [id number] Univers 11:16:43 11:31:43 Visit Sy Wiseman MULTISPEC 350.1.1 3.10 it[place] of [place].2.[place] [id number] [address] DIABETES CLINIC 2021-05-05 2021-05-05 Out[facility] [id number] Univers 11:30:00 11:30:00 SY itvandana [facility] 2021-05-05 2021-05-05 Orders Doctor QUICK 1.2.840.114 [id number] Univers 00:00:00 00:00:00 Only Unassigned, DELIO 350.1.13.10 ity of [place] [facility] 4.2.7.2.686 [place] [phone] [address] 2021-04-22 2021-04-22 Outpatient R [facility] [id number] Univers 12:00:00 12:00:00 ity [facility] 2021-04-22 2021-04-22 Outpatient R [facility] [id number] Univers 12:00:00 12:00:00 ity [facility] 2021-04-152021-04-15 Office Delano [facility] [id number] Univers 11:30:39 12:19:42 Visit Jolynn GILBERT 350.1.13.10 ity of [facility] [place] [phone] [facility] [address] [facility] 2021-04-15 2021-04-15 [facility] [id number] Univers 11:20:00 12:19:42 JOLYNN ity [facility] 2021-04-15 2021-04-15 [facility] [id number] Univers 11:20:00 12:19:42 JOLYNN ity [facility] 2021-04-14 2021-04-14 Orders Doctor YNES 1.2.840.114 [id number] Univers 00:00:00 00:00:00 Only Unassigned, DELIO 350.1.13.10 ity of [place] [facility] 4.2.7.2.686 [place] [phone] [place] [address] [address] 2021-03-02 2021-03-02 Telephone Kahlil Gomez [facility] 1.2.840.114 [id number] Univers 00:00:00 00:00:00 Ken Cantrell 350.1.13.10 i [place] [phone] [place] [address] 2021-02-22 2021-02-22 Outpatient R [facility] [id number] Univers 15:30:00 15:30:00 ity of [facility] 2021-02-18 2021-02-18 Office [facility] 1.2.373.940 [id number] Univers 07:55:20 09:08:39 Visit Ken Cantrell 350.1.13.10 [place] [phone] [place] [address] 2021-02-18 2021-02-18 Outpatient R KAHLIL GOMEZ [facility] [id number] Univers 08:00:00 08:00:00 ity of [facility] 2021-02-18 2021-02-18 Orders Doctor YNES 1.2.840.114 [id number] Univers 00:00:00 00:00:00 Only Unassigned, DELIO 350.1.13.10 ity of [place] [facility] 4.2.7.2.686 [place] [phone] [facility] [address] [place] 2021-02-03 2021-02-03 [facility]ill [facility] 1.2.840.114 [id number] Univers 00:00:00 00:00:00 Dilcia Marin Burton 350.1.13.10 [place] [phone] [place] dic[place] n[place] [address] [facility] 2021-02-03 2021-02-03 [facility]ill [facility] 1.2.840.114 [id number] Univers 00:00:00 00:00:00 Dilcia Cantrell 350.1.13.10 [place] [phone] [place] dic[place] n[place] 134 [facility] 2021-01-28 2021-01-28 [facility] 1.2.840.114 [id number] Univers 09:42:00 23:59:00 Encounter milana, PRIMARY 350.1.13.10 [place] [phone] [place] dic[place] 036 [place] 2021-01-28 2021-01-28 [facility] [id number] Univers 09:42:00 23:59:00 Encounter milana, PRIMARY [id number] [id number] [phone] [facility] 036 [place] 2021-01-28 2021-01-28 Outpatient R [facility] [id number] Univers 09:42:00 09:42:00 MILANA, ity of [place] [facility] 2021-01-18 2021-01-18 Outpatient R KAHLIL GOMEZ [facility] [id number] Univers 08:30:00 08:30:00 ity [facility] 2021-01-15 2021-01-15 Outpatient R JAYLENE [facility] [id number] Univers 13:00:00 13:00:00 DILCIA ity [facility] 2020-11-30 2020-11-30 [facility] [id number] Univers 00:00:00 00:00:00 Ken Cantrell [id number] [id number] [phone] [place] dical nal [address] [facility] 2020-11-26 2020-11-26 Workers' Compensation Claims Supervisor Fredy, Ruba Lab Main [facility] 1.2.8 [id number] Univers 11:47:51 12:02:51 Visit Kahlil Gomez [id number] [id number] [phone] [place] d[place] nal 353 [facility] 2020-11-26 2020-11-26 Office [facility] [id number] Univers 10:42:24 11:30:15 Visit Ken Cantrell [id number] [id number] [phone] [place] d[place]al [address] [place] [address] 2020-11-26 2020-11-26 Outpatient R KAHLIL GOMEZ [facility] [id number] Univers 10:30:00 10:30:00 ity [facility] 2020-10-22 2020-10-22 Office Patricia [facility] [id number] Univers 08:19:26 08:59:04 Visit Ken Cantrell [id number] [id number] [phone] [place] d[place] nal 134 [facility] 2020-10-22 2020-10-22 Outpatient R KAHLIL GOMEZ [facility] [id number] Univers 08:30:00 08:30:00 ity of [facility] 2020-09-28 2020-09-28 Outpatient R KAHLIL GOMEZ [facility] [id number] Univers 15:15:00 15:15:00 ity [facility] 2020-08-25 2020-08-25 [facility] [id number] Univers 00:00:00 00:00:00 Outreach Jarochodario EUBANKS [id number] i ty of [facility] [id number] [phone] [address] 2020-04-22 2020-04-22 Outpatient R [facility] [id number] Univers 14:00:00 14:00:00 ity [facility] 2020-04-20 2020-04-20 Outpatient R [facility] [id number] Univers 15:00:00 15:00:00 ity of [facility] 2020-04-01 2020-04-01 [facility] [id number] Univers 14:47:41 15:43:48 Visit Dilcia Cantrell [id number] [id number] [phone] [place] d[place]al [address] [place] [address] 2020-04-01 2020-04-01 Outpatient R AD, [facility] [id number] Univers 15:00:00 15:00:00 DILCIA ity of [facility] 2020-03-10 2020-03-10 Telephone [facility] [id number] Univers 00:00:00 00:00:00 Dilcia Cantrell [id number] [id number] [phone] [place] d[place]al 134 [facility] 2020-03-05 2020-03-05 Office [facility] 1.2.840.114 [id number] Univers 14:51:22 15:56:03 Visit Dilcia Cantrell [id number] [id number] [phone] [place] dical [address] 2020-03-05 2020-03-05 Outpatient R ADUM, [facility] [id number] Univers 15:00:00 15:00:00 DILCIA porter [facility] 2020-03-05 2020-03-05 Orders Doctor YNES [id number] Univers 00:00:00 00:00:00 Only Unassigned, DELIO [id number] ity of [facility] [id number] [place] as [phone] [address] 2020-02-26 2020-02-26 Outpatient R ADUM, [facility] [id number] Univers 16:00:00 16:00:00 DILCIA vandana [facility] 2020-02-19 2020-02-19 Outpatient R ADUM, [facility] [id number] Univers 11:00:00 11:00:00 DILCIA porter [facility] 2020-02-18 2020-02-18 Office Ad, [facility] 1.2.840.114 [id number] Univers 10:40:49 11:32:54 Visit Dilcia Demarcoton [id number] [id number] [phone] [address] 2020-02-18 2020-02-18 Outpatient R ADUM, [facility] [id number] Univers 11:00:00 11:00:00 DILCIA porter [facility] 2020-02-05 2020-02-05 Office Adum, [facility] [id number] Univers 15:40:12 16:44:38 Visit Dilcia Demarcoton [id number] [id number] [phone] [place] dic[address] 2020-02-05 2020-02-05 Outpatient R ADUM, [facility] [id number] Univers 15:30:00 15:30:00 DILCIA porter [facility] 2020-02-05 2020-02-05 Orders Doctor QUICK [id number] Univers 00:00:00 00:00:00 Only Unassigned, DELIO [id number] ity of [facility] [id number] [place] [phone] [address] 2020-01-15 2020-01-15 Office Adum, [facility] [id number] Univers 15:32:30 16:37:16 Visit Dilcia Cantrell [id number] [id number] [phone] [place] dical [address] 2020-01-15 2020-01-15 Outpatient R JALYENE, [facility] [id number] Univers 15:30:00 15:30:00 DILCIA porter [facility] 2020-01-15 2020-01-15 Orders Doctor YNES 1.2.840.114 [id number] Univers 00:00:00 00:00:00 Only Unassigned, DELIO [id number] ity of [place] [facility] [id number] [place] [phone] [address] 2020-01-14 2020-01-14 Outpatient R SHARONDA, [facility] [id number] Univers 10:00:00 10:00:00 RICK porter of [facility] 2019-11-01 2019-11-01 Orders Doctor YNES 1.2.840.114 [id number] Univers 00:00:00 00:00:00 Only Unassigned, DELIO [id number] ity of [place] [facility] [id number] [place] [phone] [address] 2019-06-06 2019-06-06 Orders Doctor YNES 1.2.840.114 [id number] Univers 00:00:00 00:00:00 Only Unassigned, DELIO [id number] ity of [place] [facility] [id number] [place] [phone] [address] Results Test Description Test Time Test Comments Results Result Comments Source POCT MOLECULAR FLU 2022-05-31 02:29:13 Test Item Value Reference Range Interpretation Comme nts POCT Molecular FluA (test code = 34669-7) Negative Negative POCT Molecular FluB (test code = 58399-7) Negative Negative Lab Interpretation (test code = 88188-3) Normal [facility] (BINAX NOW)2022-05-31 02:26:00 Test Item Value Reference Range Interpretation Comments POCT SARS-COV-2 ANTIGEN Not Detected Not Detected (test code = 19271-2) On board controls Yes acceptable with C Line (test code = 3574) BRANDO (test code = BRANDO) accurate development and interpretation of all internal controls Lab Interpretation Normal (test code = 39130-0) [facility] [id number] 14:41:00 Test Item Value Reference Range Interpretation Comments POCT PREG (test code = 1605) Negative On board controls acceptable with C Yes Line (test code = 3574) POCT PREG LOT # (test code = 3575) POCT PREG TEST DATE (test code = 3576) [facility] [id number] 14:41:00 Test Item Value Reference Range Interpretation Comments POCT PREG (test code = 1605) Negative On board controls acceptable with C Yes Line (test code = 3574) POCT PREG LOT # (test code = 3575) POCT PREG TEST DATE (test code = 3576) [facility]
[2022-11-06] MEDS ORDERED: ACETAMINOPHEN 500 MG TAB ONE (06:18)
[2022-11-06 06:20] LABS: Absolute Lymphocytes (CBC) 0.5 K/uL (0.7-4.9); Hematocrit 33.5 % (36.0-45.0); Lymphocytes % 3.6 % (15.3-44.8); MCV 85.2 fL (80-100); MPV 8.6 fL (7.6-11.3); RBC Red Blood Cell Count 3.94 M/uL (3.86-4.86)
[2022-11-06 06:24] LABS: Protime INR 1.07
[2022-11-06 06:32] LABS: Albumin 3.9 g/dL (3.4-5.0); Bilirubin Total 0.2 mg/dL (0.2-1.0); Potassium 3.4 mEq/L (3.5-5.1)
[2022-11-06 06:54] LABS: Blood Morphology Comment NOT SEEN (NOT SEEN); Platelet Estimate ADEQ; White Blood Cell Scan OK (OK)
[2022-11-06 07:29] LABS: Specific Gravity 1.014 (1.005-1.030); Urine Bacteria None Seen /HPF (<20); Urine Bilirubin NEGATIVE (Negative); Urine Blood 1+ (Negative); Urine Clarity Clear (Clear); Urine Color Light-Yellow (Yellow); Urine Glucose NEGATIVE (Negative); Urine Protein NEGATIVE (Negative); Urine RBC <5 /HPF (None Seen); Urine Urobilinogen Normal (Normal)
--- NOTE | 2022-11-06 08:50 | ER ---
Nurse's Notes [facility] Name: Melissa Joel Age: 27 yrs Sex: Female : 1995 Arrival Date: 11/06/2022 Time: 05:02 Bed 15 Private MD: Diagnosis: Disease of upper respiratory tract, unspecified;Viral infection, unspecified Presentation: 11/06 05:09 Chief complaint: EMS states: 27 year old female reports body chills, left side chest ha1 pain, sore throat, and fever. Fever of 101.2. we gave 1 gram of Tylenol. Coronavirus screen: Vaccine status: Patient reports being unvaccinated. Ebola Screen: No symptoms or risks identified at this time. Initial Sepsis Screen: Does the patient meet any 2 criteria? HR > 90 bpm. Does the patient have a suspected source of infection? No. Patient's initial sepsis screen is negative. Risk Assessment: Do you want to hurt yourself or someone else? Patient reports no desire to harm self or others. Onset of symptoms was November 06, 2022. 05:09 Method Of Arrival: EMS: [facility] ha1 05:09 Acuity: PABLO 3 ha1 Triage Assessment: 05:08 General: Appears uncomfortable, Behavior is calm, cooperative. ha1 05:08 Pain: Complains of pain in left side of chest and throat. ha1 05:08 Neuro: Level of Consciousness is awake, alert, obeys commands, Oriented to person, ha1 place, time, situation. Cardiovascular: Patient's skin is warm and dry. Respiratory: Airway is patent Respiratory effort is even, unlabored, Respiratory pattern is regular, symmetrical. GI: No signs and/or symptoms were reported involving the gastrointestinal system. Abdomen is flat, non-distended. : No signs and/or symptoms were reported regarding the genitourinary system. Derm: Skin is intact, Skin is moist, Skin is normal. Musculoskeletal: Circulation, motion, and sensation intact. Range of motion: intact in all extremities. Historical: - Allergies: 05:15 No Known Allergies; ha1 - PMHx: 05:15 None; ha1 - PSHx: 05:15 None; ha1 - Immunization history:: Adult Immunizations up to date. - Social history:: Smoking status: Patient denies any tobacco usage or history of. Screenin:08 [facility] ED Fall Risk Assessment (Adult) History of falling in the last 3 months, ha1 including since admission No falls in past 3 months (0 pts) Confusion or Disorientation No (0 pts) Intoxicated or Sedated No (0 pts) Impaired Gait No (0 pts) Mobility Assist Device Used No (0 pt) Altered Elimination No (0 pt) Score/Fall Risk Level 0 - 2 = Low Risk Oriented to surroundings, Maintained a safe environment, Educated pt \T\ family on fall prevention, incl call for assistance when getting out of bed, Hourly rounding (assess needs \T\ fall precautionary measures) done. Abuse screen: Denies threats or abuse. Denies injuries from another. Nutritional screening: No deficits noted. Tuberculosis screening: No symptoms or risk factors identified. Assessment: 05:08 Reassessment: see triage assessment. ha1 06:10 Reassessment: Patient and/or family updated on plan of care and expected duration. Pain ha1 level reassessed. Patient is alert, oriented x 3, equal unlabored respirations, skin warm/dry/pink. 07:00 Reassessment: Patient appears in no apparent distress at this time. No changes from kc6 previously documented assessment. Patient and/or family updated on plan of care and expected duration. Pain level reassessed. Patient is alert, oriented x 3, equal unlabored respirations, skin warm/dry/pink. 08:00 Reassessment: Patient appears in no apparent distress at this time. No changes from kc6 previously documented assessment. Patient and/or family updated on plan of care and expected duration. Pain level reassessed. Patient is alert, oriented x 3, equal unlabored respirations, skin warm/dry/pink. Vital Signs: 05:09 BP 125 / 93; Pulse 117; Resp 19 S; Temp 102.7(O); Pulse Ox 99% on R/A; Weight 73.48 kg; ha1 Height 5 ft. 2 in. ; Pain 7/10; 06:15 BP 110 / 83; Pulse 114; Resp 20; Temp 102; Pulse Ox 100% on R/A; ha1 07:00 Temp 100.8(O); ha1 07:25 BP 109 / 74; Pulse 102; Resp 19 S; Pulse Ox 100% on R/A; kc6 08:34 BP 112 / 67; Pulse 96; Resp 18 S; Temp 98.8(O); Pulse Ox 100% on R/A; kc6 05:09 Body Mass Index 29.63 (73.48 kg, 157.48 cm) ha1 05:09 Pain Scale: Adult ha1 ED Course: 05:08 Patient arrived in ED. sb4 05:08 Patient has correct armband on for positive identification. Placed in gown. Bed in low ha1 position. Call light in reach. Side rails up X 1. 05:08 Arm band placed on right wrist. ha1 05:08 Maintain EMS IV. Dressing intact. Good blood return noted. Site clean \T\ dry. Gauge \T\ [place] 1 site: 20 left AC. 05:09 Elisa Fragoso RN is Primary Nurse. ha1 05:15 Triage completed. ha1 05:20 Missed attempt(s): 20 gauge in left antecubital area. ha1 05:23 Aiden Yadav MD is Attending Physician. kdr 05:40 Missed attempt(s): 22 gauge in left forearm. ha1 06:16 Blood Culture Adult (2) Sent. ha1 06:16 CBC with Diff Sent. ha1 06:16 CMP Sent. ha1 06:16 Lactate w/ 2H reflex if indic. Sent. ha1 06:16 Protime (+inr) Sent. ha1 06:17 Ptt, Activated Sent. ha1 06:18 Chest Single View XRAY In Process Unspecified. EDMS 07:00 Report received from Elisa Fragoso RN. kc6 07:27 Attending Physician role handed off by Aiden Yadav MD bs3 07:27 Nadeem Parisi MD is Attending Physician. bs3 08:56 No provider procedures requiring assistance completed. IV discontinued, intact, kc6 bleeding controlled, No redness/swelling at site. Pressure dressing applied. Administered Medications: 05:50 Drug: Acetaminophen PO 1000 mg Route: PO; ha1 07:00 Follow up: Response: No adverse reaction; Temperature is decreased kc6 Medication: 08:56 VIS not applicable for this client. kc6 Outcome: 08:49 Discharge ordered by . bs3 08:56 Discharged to home ambulatory. kc6 08:56 Condition: improved 08:56 Discharge instructions given to patient, Instructed on discharge instructions, follow up and referral plans. Demonstrated understanding of instructions, follow-up care. 08:56 Patient left the ED. kc6 Signatures: Dispatcher [employer] EDMS Aiden Yadav MD MD kdr Elisa Fragoso RN RN ha1 Za Tanner RN RN kc6 Nadeem Parisi MD MD bs3 Grecia Castellon PA-C PASimin sb4 Corrections: (The following items were deleted from the chart) 05:18 05:09 Chief complaint: EMS states: 27 year old female reports body chills, left side ha1 chest pain, sore throat, and fever. ha1 08:37 08:34 BP 112 / 67; Pulse 96bpm; Resp 18bpm; Spontaneous; Pulse Ox 100% RA; kc6 kc6
--- NOTE | 2022-11-06 08:50 | EDPHYS ---
Physician Documentation [facility] Name: Melissa Joel Age: 27 yrs Sex: Female : 1995 Arrival Date: 11/06/2022 Time: 05:02 Bed 15 Private MD: ED Physician Nadeem Parisi HPI: 11/07 04:45 This 27 yrs old Black Female presents to ER via EMS with complaints of Fever. kdr 04:45 EMS states that the patient presents with body chills left-sided chest pain sore throat kdr and fever. Her fever is reported to be 101.2. EMS gave her 1 g of Tylenol.. Onset: The symptoms/episode began/occurred today. 04:45 Severity of symptoms: At their worst the symptoms were mild in the emergency department kdr the symptoms are unchanged. The patient has not experienced similar symptoms in the past. The patient has not recently seen a physician. Historical: - Allergies: 11/06 05:15 No Known Allergies; ha1 - PMHx: 05:15 None; ha1 - PSHx: 05:15 None; ha1 - Immunization history:: Adult Immunizations up to date. - Social history:: Smoking status: Patient denies any tobacco usage or history of. ROS: 11/07 04:45 Constitutional: Negative for fever, chills, and weight loss, Eyes: Negative for injury, kdr pain, redness, and discharge, Neck: Negative for injury, pain, and swelling, Cardiovascular: Negative for chest pain, palpitations, and edema, Respiratory: Negative for shortness of breath, cough, wheezing, and pleuritic chest pain, Abdomen/GI: Negative for abdominal pain, nausea, vomiting, diarrhea, and constipation, Back: Negative for injury and pain, : Negative for injury, bleeding, discharge, and swelling, MS/Extremity: Negative for injury and deformity, Skin: Negative for injury, rash, and discoloration, Neuro: Negative for headache, weakness, numbness, tingling, and seizure activity. Psych: Negative for depression, anxiety, suicide ideation, homicidal ideation, and hallucinations, Allergy/Immunology: Negative for hives, rash, and allergies, Endocrine: Negative for neck swelling, polydipsia, polyuria, polyphagia, and marked weight changes, Hematologic/Lymphatic: Negative for swollen nodes, abnormal bleeding, and unusual bruising. ENT: Positive for sore throat. Exam: 11/06 08:47 Constitutional: This is a well developed, well nourished patient who is awake, alert, bs3 and in no acute distress. Head/Face: Normocephalic, atraumatic. Eyes: Pupils equal round and reactive to light, extra-ocular motions intact. Lids and lashes normal. ENT: mmm, no posterior phyarngeal erythema Neck: Trachea midline, no thyromegaly, no neck stiffness Chest/axilla: Normal chest wall appearance and motion. Nontender with no deformity. No lesions are appreciated. Cardiovascular: Regular rate and rhythm with a normal S1 and S2. symmetric pulses in upper extremities Respiratory: Lungs have equal breath sounds bilaterally, clear to auscultation, no respiratory distress Skin: Warm, dry with normal turgor. Normal color with no rashes, no lesions, and no evidence of cellulitis. MS/ Extremity: Pulses equal, no cyanosis. Neurovascular intact. Full, normal range of motion. Neuro: Awake and alert, GCS 15, oriented to person, place, time, and situation. Cranial nerves II-XII grossly intact. Motor strength 5/5 in all extremities. Sensory grossly intact. Psych: Awake, alert, with orientation to person, place and time. Behavior, mood, and affect are within normal limits. Sinus tachycardia [address] elevation or depression QTc 384 as interpreted by myself Vital Signs: 05:09 BP 125 / 93; Pulse 117; Resp 19 S; Temp 102.7(O); Pulse Ox 99% on R/A; Weight 73.48 kg; ha1 Height 5 ft. 2 in. ; Pain 7/10; 06:15 BP 110 / 83; Pulse 114; Resp 20; Temp 102; Pulse Ox 100% on R/A; ha1 07:00 Temp 100.8(O); ha1 07:25 BP 109 / 74; Pulse 102; Resp 19 S; Pulse Ox 100% on R/A; kc6 08:34 BP 112 / 67; Pulse 96; Resp 18 S; Temp 98.8(O); Pulse Ox 100% on R/A; kc6 05:09 Body Mass Index 29.63 (73.48 kg, 157.48 cm) ha1 05:09 Pain Scale: Adult ha1 MDM: 08:45 Data reviewed: vital signs, nurses notes. ED course: Patient signed out pending labs bs3 and reassessment she reports to me that she has had cough sore throat for the last couple days and then developed a fever just prior to arrival she got anxious and nervous and got chest tightness and therefore came in she now notes that she is feeling well she denies any urinary symptoms denies current chest pain denies abdominal pain she still has some slight throat discomfort but her throat and oropharynx are normal I would have considered doing a flu, COVID swab which I discussed with the patient however she did not want these she feels comfortable that this is a viral illness her friend at work had a viral illness just prior to her she was given strict return precautions. 08:49 Patient medically screened. bs3 /04 05:49 Order name: Blood Culture Adult (2) kdr 11/06 05:49 Order name: CBC with Diff; Complete Time: 07:01 kdr 11/06 05:49 Order name: CMP; Complete Time: 07:01 kdr 11/06 05:49 Order name: Lactate w/ 2H reflex if indic.; Complete Time: 07:01 kdr 11/06 05:49 Order name: Protime (+inr); Complete Time: 07:01 kdr 11/06 05:49 Order name: Ptt, Activated; Complete Time: 07:01 kdr 11/06 05:49 Order name: Urinalysis w/ reflexes; Complete Time: 08:38 kdr 11/06 06:54 Order name: CBC Smear Scan; Complete Time: 07:01 EDMS 11/06 05:49 Order name: Chest Single View XRAY kdr 11/06 05:49 Order name: EKG; Complete Time: 05:50 kdr 11/06 05:49 Order name: Accucheck; Complete Time: 06:16 kdr 11/06 05:49 Order name: Cardiac monitoring; Complete Time: 06:16 kdr 11/06 05:49 Order name: EKG - Nurse/Tech; Complete Time: 05:52 kdr 11/06 05:49 Order name: IV Saline Lock - Large Bore; Complete Time: 05:52 kdr 11/06 05:49 Order name: Labs collected and sent; Complete Time: 05:52 kdr 11/06 05:49 Order name: O2 Per Protocol; Complete Time: 05:52 kdr 11/06 05:49 Order name: O2 Sat Monitoring; Complete Time: 05:52 kdr 11/06 05:49 Order name: Vital Signs; Complete Time: 05:52 kdr Administered Medications: 05:50 Drug: Acetaminophen PO 1000 mg Route: PO; ha1 07:00 Follow up: Response: No adverse reaction; Temperature is decreased kc6 Disposition Summary: 11/06/22 08:49 Discharge Ordered Location: Home bs3 Problem: new bs3 Symptoms: have improved bs3 Condition: Stable bs3 Diagnosis - Disease of upper respiratory tract, unspecified bs3 - Viral infection, unspecified bs3 Followup: bs3 - With: Private Physician - When: 1 week - Reason: Re-evaluation by your physician Discharge Instructions: - Discharge Summary Sheet bs3 - Upper Respiratory Infection, Adult bs3 - Viral Respiratory Infection bs3 Forms: - Work release form bs3 - Medication Reconciliation Form bs3 - Thank You Letter bs3 - Antibiotic Education bs3 - Prescription Opioid Use bs3 Signatures: Dispatcher [employer] Aiden Crane MD MD kdr Elisa Fragoso RN RN 1 Nadeem Parisi MD MD bs3 Za Tanner RN kc6
[2022-11-06 09:02] VITALS: O2SAT 100
[2022-11-06 09:05] VITALS: BP 112/67; TEMP 98.8
--- NOTE | 2022-11-07 10:17 | EKG ---
Test Date: 2022-11-06 Test Time: 05:28:18 Manufacturing Engineer Supervisor: MATHEUS MEASUREMENT RESULTS: Intervals: Rate: 115 UT: 220 QRSD: 72 QT: 278 QTc: 384 [place]: P: 66 UT: 220 QRS: 62 T: 39 INTERPRETIVE STATEMENTS: Sinus tachycardia with 1st degree AV block Otherwise normal ECG No previous ECG available for comparison Electronically Signed On 11-07-22 10:13:55 CDT by Harshad Tolbert
--- NOTE | 2022-11-07 15:41 | RAD REPORT ---
EXAM DESCRIPTION: RAD - Chest Single View - 11/06/2022 6:16 am CLINICAL HISTORY: The patient is 27 years old and is Female; Chest pain;Fever TECHNIQUE: Single view of the chest. COMPARISON: No relevant prior studies available. FINDINGS: Lungs: No pulmonary vascular congestion or consolidation. Pleural space: Unremarkable. No pneumothorax. Heart: Unremarkable. No cardiomegaly. Mediastinum: Unremarkable. Bones/joints: No acute fracture visualized. Upper abdomen: No free air in the visualized upper abdomen. IMPRESSION: No acute cardiopulmonary process identified. Electronically signed by: Eun Martinez MD 11/06/2022 6:28 AM CDT Due to temporary technical issues with the PACS/Fluency reporting system, reports are being signed by the in house radiologist without review as a courtesy to ensure prompt reporting. The interpreting r adiologist is fully responsible for the content of the report.
== END 2022-11-06 08:56 | disposition home or self-care (01) ==
LOC: ER 05:02
DX: J39.9 Disease of upper respiratory tract, unspecified (principal); B34.9 Viral infection, unspecified
CPT/HCPCS: 36415; 71045; 80053; 81001; 83605; 85025; 85610; 85730; 87040; 93005; 99284